=== PATIENT | female | born 1995 ===

== ENCOUNTER 2017-06-04 20:11 | Inpatient (IN) | payer BC ==
[2017-06-04] MEDS ORDERED: Sodium Chloride 0.9% 1,000 ML IV STA (20:50)
--- NOTE | 2017-06-04 20:54 | ED PDOC ---
HPI: Abdomen Time Seen by Provider: 06/04/17 20:42 Chief Complaint (Nursing): Abdominal Pain Chief Complaint (Provider): abdominal pain History Per: Patient History/Exam Limitations: no limitations Onset/Duration Of Symptoms: Days (4) Current Symptoms Are (Timing): Still Present Location Of Pain/Discomfort: RUQ Additional History Per: Patient Additional Complaint(s): 21 y/o female presents for eval of abdominal pain x 3 days. Patient states symptoms initially started both upper sides of her abdomen, with associated vomiting. Patient was seen by her PMD and prescribed anti-nausea medicine; states vomiting resolved since then but now notes "sharp" intermittent right upper abdominal pain. Denies fever, nausea/vomiting, chest pain, shortness of breath, palpitations, changes in bowel movements, dysuria, hematuria. Past Medical History Reviewed: Historical Data, Nursing Documentation, Vital Signs Vital Signs: Last Vital Signs Temp 98.3 F 06/05/17 02:36 Pulse 98 H 06/05/17 02:36 Resp 16 06/05/17 02:36 BP 122/75 06/05/17 02:36 Pulse Ox 99 06/05/17 03:12 - Medical History PMH: No Chronic Diseases - Surgical History Surgical History: Tonsillectomy - Family History Family History: States: Unknown Family Hx - Living Arrangements Living Arrangements: With Family - Allergies Allergies/Adverse Reactions: Allergies Allergy/AdvReac Type Severity Reaction Status Date / Time No Known Allergies Allergy Verified 06/04/17 20:21 Review of Systems ROS Statement: Except As Marked, All Systems Reviewed And Found Negative Physical Exam - Reviewed Vital Signs Reviewed: Yes - Physical Exam Appears: Positive for: Well, Non-toxic Head Exam: Positive for: ATRAUMATIC, NORMAL INSPECTION, NORMOCEPHALIC Eye Exam: Positive for: Normal appearance ENT: Positive for: Normal ENT Inspection Cardiovascular/Chest: Positive for: Regular Rate, Rhythm Respiratory: Positive for: Normal Breath Sounds Gastrointestinal/Abdominal: Positive for: Bowel Sounds, Soft, Tenderness (RUQ) Back: Positive for: Normal Inspection. Negative for: L CVA Tenderness, R CVA Tenderness Extremity: Positive for: Normal ROM Neurologic/Psych: Positive for: Alert, Oriented - Laboratory Results Result Diagrams: 06/04/17 21:18 06/04/17 21:18 Urine POC: Negative Urine dip results: Negative for: Leukocyte Esterase, Nitrate - ECG O2 Sat by Pulse Oximetry: 99 - Progress ED Course And Treament: labs, abdomen CT ED OBSERVATION Date of observation admission: 06/04/17 Time of observation admission: 23:00 - Observation admission statement Patient is being placed in observation because:: abdominal pain - Goals of Observation Goals of observation are:: obtain CT abd/pelvis - Progress Note Progress Note: 06/04/17 23:00 Patient resting comfortably 06/05/17 00:40 EXAM: CT Abdomen and Pelvis With Intravenous Contrast CLINICAL HISTORY: 21 years old, female; Pain; Abdominal pain; Generalized; Additional info: Right upper abdominal pain TECHNIQUE: Axial computed tomography images of the abdomen and pelvis with intravenous contrast. This CT exam was performed using one or more of the following dose reduction techniques : automated exposure control, adjustment of the mA and/or kV according to patient size, and/ or use of iterative reconstruction technique. Coronal and sagittal reformatted images were created and reviewed. CONTRAST: 95 mL of [id number] administered intravenously. COMPARISON: No relevant prior studies available. FINDINGS: Lower thorax: No acute findings. ABDOMEN: Liver: Mild fatty infiltration. Gallbladder and bile ducts: Apparent mild gallbladder wall thickening and/or fluid. No calcified gallstones. No ductal dilation. Pancreas: No ductal dilation. No mass. Spleen: No splenomegaly. Adrenals: No mass. Kidneys and ureters: No mass. No hydronephrosis. Stomach and bowel: No definite mural thickening. No obstruction. Appendix: Normal caliber. No inflammation. Appendicolith. PELVIS: Bladder: Unremarkable. Reproductive: 2.6 x 2.7 x 2.8 cm hypodense lesion within LEFT ovary. ABDOMEN and PELVIS: Intraperitoneal space: No significant fluid collection. No free air Bones/joints: No acute fracture. Soft tissues: Tiny umbilical hernia containing fat. Vasculature: Unremarkable. No aneurysm. Lymph nodes: No pathologically enlarged lymph nodes. IMPRESSION: 1. Apparent mild gallbladder wall thickening and/or fluid. Recommend ultrasound. 2. Probable LEFT ovarian cyst. Consider ultrasound. 3. Incidental/non-acute findings are described above. Case discussed with Dr. Ayala, Surgeon on-call; requesting ultrasound as could micro[employer] exchange administrator of patient depending on findings. Ultrasound called in 06/05/17 02:54 Multiple gallstones, mild to moderate gallblladder wall thickening and postive sonographic Agusto's. Finding suspecious for acute cholecystitis. CBD is normal 3.7 mm. RAD Impression : Abnormal Written by Jaz Gómez on 06/05/2017 02:34:27 3:[address] yAala, recommends admission under Hospitalist, IV fluids, IV zosyn, NPO Case discussed with Dr. Goodwin, Hospitalist on-call, for admission. 06/05/17 03:21 Case discussed with md do resident urgent care on-call Disposition - Clinical Impression Clinical Impression: Acute cholecystitis - Patient ED Disposition Is Patient to be Admitted: Yes - Disposition Disposition Time: 03:11 Condition: FAIR - Pt Status Changed To: Hospital Disposition Of: Inpatient - Admit Certification Admit to Inpatient:: After my assessment, the patient will require hospitalization for at least two midnights. This is because of the severity of symptoms shown, intensity of services needed, and/or the medical risk in this patient being treated as an outpatient.
[2017-06-04 21:29] LABS: BASO # 0.1 K/uL (0.0-0.2); BASO % 0.7 % (0.0-2.0); EOS # 0.3 K/uL (0.0-0.7); EOS % 2.8 % (0.0-4.0); HEMOGLOBIN 13.9 g/dL (12.0-16.0); LYMPH # 1.9 K/uL (1.0-4.3); LYMPH % 16.2 % (20.0-40.0); MEAN CELL VOLUME 84.5 fl (81.0-99.0); MEAN CORPUSCULAR HEMOGLOBIN 27.4 pg (27.0-31.0); MEAN CORPUSCULAR HGB CONC 32.4 g/dL (33.0-37.0); MEAN PLATELET VOLUME 9.2 fl (7.2-11.7); MONO # 0.8 K/uL (0.0-0.8); MONO % 7.3 % (0.0-10.0); NEUT # 8.5 K/uL (1.8-7.0); NRBC % 0.1 % (0.0-0.0); RBC 5.08 Mil/uL (3.80-5.20); WHITE BLOOD COUNT 11.6 K/uL (4.8-10.8)
[2017-06-04 21:37] LABS: ALB/GLOB RATIO 1.5 (1.0-2.1); ALBUMIN 4.6 g/dL (3.5-5.0); ALT/SGPT 66 U/L (9-52); AST/SGOT 33 U/L (14-36); BLOOD UREA NITROGEN 9 mg/dl (7-17); CALCIUM 9.4 mg/dL (8.4-10.2); GFR AFRICAN-AMERICAN > 60; GFR NON-AFRICAN AMERICAN > 60; LIPASE 82 U/L (23-300)
[2017-06-04 21:51] LABS: PARTIAL THROMBOPLASTIN TIME 28.7 Seconds (25.6-37.1); PROTHROMBIN TIME 11.8 Seconds (9.8-13.1)
[2017-06-04] MEDS ORDERED: Sodium Chloride 0.9% 50 ML IV ONE (23:10)
[2017-06-04] MEDS ORDERED: Iohexol 300 100 ML IJ ONE (23:10)
--- NOTE | 2017-06-05 00:23 | CT ---
EXAM: CT Abdomen and Pelvis With Intravenous Contrast CLINICAL HISTORY: 21 years old, female; Pain; Abdominal pain; Generalized; Additional info: Right upper abdominal pain TECHNIQUE: Axial computed tomography images of the abdomen and pelvis with intravenous contrast. This CT exam was performed using one or more of the following dose reduction techniques: automated exposure control, adjustment of the mA and/or kV according to patient size, and/or use of iterative reconstruction technique. Coronal and sagittal reformatted images were created and reviewed. CONTRAST: 95 mL of [id number] administered intravenously. COMPARISON: No relevant prior studies available. FINDINGS: Lower thorax: No acute findings. ABDOMEN: Liver: Mild fatty infiltration. Gallbladder and bile ducts: Apparent mild gallbladder wall thickening and/or fluid. No calcified gallstones. No ductal dilation. Pancreas: No ductal dilation. No mass. Spleen: No splenomegaly. Adrenals: No mass. Kidneys and ureters: No mass. No hydronephrosis. Stomach and bowel: No definite mural thickening. No obstruction. Appendix: Normal caliber. No inflammation. Appendicolith. PELVIS: Bladder: Unremarkable. Reproductive: 2.6 x 2.7 x 2.8 cm hypodense lesion within LEFT ovary. ABDOMEN and PELVIS: Intraperitoneal space: No significant fluid collection. No free air. Bones/joints: No acute fracture. Soft tissues: Tiny umbilical hernia containing fat. Vasculature: Unremarkable. No aneurysm. Lymph nodes: No pathologically enlarged lymph nodes. IMPRESSION: 1. Apparent mild gallbladder wall thickening and/or fluid. Recommend ultrasound. 2. Probable LEFT ovarian cyst. Consider ultrasound. 3. Incidental/non-acute findings are described above.
[2017-06-05] MEDS ORDERED: Piperacill/Tazo 3.375gm in Dex 3.375 GM/50 ML BAG IVPB ONE (03:04)
[2017-06-05] MEDS ORDERED: Piperacillin/Tazobact 3.375 gm Inj IVPB ONE (03:10)
[2017-06-05] MEDS ORDERED: Sodium Chloride 0.9% 1,000 ML IV SCH (03:15)
--- NOTE | 2017-06-05 03:19 | CP.PCM.HP ---
History of Present Illness - History of Present Illness History of Present Illness: CC: RUQ pain, n/v HPI: This is a 21 y/o female with asthma who comes in with 2-3 days of RUQ abd pain. She states it started Wednesday, and she went to her PCP who believed it was viral gastroenteritis. The pain continued intermittently, and got worse in frequency and intensity, and today was accompanied by n/v/d. Denies f/c. States she has intermittently had RUQ pain for the last several months, usually worsened by heavy/fatty foods like [employer]. Generally it has self-resolved. Denies any SOB or wheezing currently. ROS: 14 systems reviewed, negative other than HPI MHx: Asthma SHx: Tonsils Allergies: NKDA; patient had some n/v after anesthesia for her tonsils Medications: As per med rec Family Hx: no significant illnesses Social Hx: Lives with family, no tobacco or EtOH Present on Admission - Present on Admission Any Indicators Present on Admission: No Past Patient History - Past Social History Smoking Status: Never Smoked - PSYCHIATRIC Hx Substance Use: No - SURGICAL HISTORY Hx Tonsillectomy: Yes Meds Allergies/Adverse Reactions: Allergies Allergy/AdvReac Type Severity Reaction Status Date / Time No Known Allergies Allergy Verified 06/04/17 20:21 Physical Exam - Constitutional Appears: No Acute Distress - Head Exam Head Exam: ATRAUMATIC, NORMOCEPHALIC - Eye Exam Eye Exam: EOMI, PERRL - ENT Exam ENT Exam: Mucous Membranes Moist - Neck Exam Neck exam: Positive for: Full Rom - Respiratory Exam Respiratory Exam: Clear to Auscultation Bilateral, NORMAL BREATHING PATTERN - Cardiovascular Exam Cardiovascular Exam: REGULAR RHYTHM, +S1, +S2 - GI/Abdominal Exam GI & Abdominal Exam: Normal Bowel Sounds, Soft - Extremities Exam Extremities exam: Positive for: full ROM, normal inspection - Neurological Exam Neurological exam: Alert, CN II-XII Intact, Oriented x3 - Psychiatric Exam Psychiatric exam: Normal Affect, Normal Mood - Skin Skin Exam: Dry, Warm Results - Vital Signs Recent Vital Signs: Last Vital Signs Temp 98.3 F 06/05/17 02:36 Pulse 98 H 06/05/17 02:36 Resp 16 06/05/17 02:36 BP 122/75 06/05/17 02:36 Pulse Ox 99 07/22/17 03:12 - Labs Result Diagrams: 06/04/17 21:18 06/04/17 21:18 Assessment & Plan (1) Acute cholecystitis Assessment and Plan: 21 y/o female with acute cholecystitis. -NPO, IVF -Continue Zosyn IV -Pain control per scale -Zofran IV for nausea -Surgical consult (Jamie notified) -- likely OR in AM -SCD for DVT PPx Status: Acute (2) DVT prophylaxis Status: Acute
[2017-06-05] MEDS: Lactated Ringer's 1,000 ML IV SCH ×4 (03:30→19:57)
--- NOTE | 2017-06-05 03:38 | US ---
HISTORY: right upper abominal pain COMPARISON: None. TECHNIQUE: Sonographic evaluation of the right upper quadrant of the abdomen. FINDINGS: LIVER: Measures 17.1 cm in length. Mild increased echogenicity of the liver parenchyma. No mass. No intrahepatic bile duct dilatation. GALLBLADDER: Multiple gallstones are seen. There is [id number] gallbladder wall thickening measures up to 4.7 millimeter. The radiologic technologist chief reported positive sonographic Gonzalez's sign. COMMON BILE DUCT: Measures 3.7 mm. No stones. No dilatation. PANCREAS: Unremarkable as visualized. No mass. No ductal dilatation. RIGHT KIDNEY: Measures 10.8 x 6.5 x 5.1 cm in length. Normal echogenicity. No calculus, mass, or hydronephrosis. AORTA: No aneurysmal dilatation. IVC: Unremarkable. OTHER FINDINGS: None . IMPRESSION: Multiple gallstones and mild to moderate gallbladder wall thickening. Findings suspicious for acute cholecystitis. If clinically warranted further assessment by hepatobiliary scan may be obtained. Normal caliber of the CBD. Mild hepatomegaly and mild hepatic steatosis.
[2017-06-05 04:35] LABS: INR 1.1 (0.9-1.2); PARTIAL THROMBOPLASTIN TIME 28.2 Seconds (25.6-37.1); PROTHROMBIN TIME 12.8 Seconds (9.8-13.1)
[2017-06-05 04:40] LABS: HEMOGLOBIN 14.2 g/dL (12.0-16.0); MEAN CELL VOLUME 83.9 fl (81.0-99.0); MEAN CORPUSCULAR HEMOGLOBIN 27.6 pg (27.0-31.0); MEAN CORPUSCULAR HGB CONC 32.9 g/dL (33.0-37.0); RBC 5.13 Mil/uL (3.80-5.20); RED CELL DISTRIBUTION WIDTH 13.8 % (11.5-14.5); WHITE BLOOD COUNT 11.1 K/uL (4.8-10.8)
[2017-06-05 04:48] LABS: BLOOD UREA NITROGEN 7 mg/dl (7-17); CALCIUM 9.3 mg/dL (8.4-10.2); GFR AFRICAN-AMERICAN > 60; GFR NON-AFRICAN AMERICAN > 60
[2017-06-05] MEDS: Piperacill/Tazo 3.375gm in Dex 3.375 GM/50 ML BAG IVPB SCH ×4 (05:04→19:54)
--- NOTE | 2017-06-05 07:59 | CP.PCM.CON ---
<Sachi Llanos - Last Filed: 06/05/17 07:55> History of Present Illness - History of Present Illness History of Present Illness: Surgery consult for Dr. Ayala 21 F w PMH of biliary colic and obesity presents with RUQ abd pain and N/V started wednesday. Pt reports that pain is associated with fatty food. Had these symptoms in the past. This is hector 4th attack and has gotten more frequent and severe. Pt has FHX of cholecystitis and both mother and grandmather had cholecystectomy. N/V after eating. Non bloody and non bilious. Denies D/F/C/CP/ SOB/sick contact/recent travel . US of abs shows gallstones. WBC was 12, tbili is 1.5. SS: :Lives with family. PMH: Obesity , biliary colic PSH: Tonsilectomy Review of Systems - Review of Systems Review of Systems: See HPI Past Patient History - Past Medical History & Family History Past Medical History?: Yes - Past Social History Smoking Status: Never Smoked - CARDIAC Hx Cardiac Disorders: No - PULMONARY Hx Asthma: Yes (last attack 3yrs ago after running in school) - NEUROLOGICAL Hx Neurological Disorder: No - HEENT Hx HEENT Problems: No - RENAL Hx Chronic Kidney Disease: No - ENDOCRINE/METABOLIC Hx Endocrine Disorders: No - HEMATOLOGICAL/ONCOLOGICAL Hx Blood Disorders: No Hx AIDS: No Hx Human Immunodeficiency Virus (HIV): No - INTEGUMENTARY Hx Dermatological Problems: No - MUSCULOSKELETAL/RHEUMATOLOGICAL Hx Musculoskeletal Disorders: No Hx Falls: No - GASTROINTESTINAL Hx Gastrointestinal Disorders: No - GENITOURINARY/GYNECOLOGICAL Hx Genitourinary Disorders: No - PSYCHIATRIC Hx Psychophysiologic Disorder: No Hx Substance Use: No - SURGICAL HISTORY Hx Tonsillectomy: Yes (11 yrs ago) - ANESTHESIA Hx Anesthesia: Yes Hx Anesthesia Reactions: No Hx Malignant Hyperthermia: No Has any member of the family had a problem w/ anesthesia?: No Meds Allergies/Adverse Reactions: Allergies Allergy/AdvReac Type Severity Reaction Status Date / Time No Known Allergies Allergy Verified 06/04/17 20:21 - Medications Medications: Current Medications Lactated Ringer's (Lactated Ringer's) 1,000 mls @ 125 mls/hr IV .Q8H [facility] Last Admin: 06/05/17 03:30 Dose: 125 mls/hr Piperacillin Sod/Tazobactam Sod (Zosyn 3.375 Gm Iv Premix) 3.375 gm in 50 mls @ 50 mls/hr IVPB Q6 [facility] Last Admin: 06/05/17 05:04 Dose: Not Given Ketorolac Tromethamine (Toradol) 15 mg IVP Q6 PRN PRN Reason: Pain, Mild (1-3) Morphine Sulfate (Morphine) 1 mg IVP Q4H PRN PRN Reason: Pain, moderate (4-7) Morphine Sulfate (Morphine) 2 mg IVP Q4 PRN PRN Reason: Pain, severe (8-10) Ondansetron HCl (Zofran Inj) 4 mg IVP Q6 PRN PRN Reason: Nausea/Vomiting Physical Exam - Constitutional Appears: Non-toxic - Head Exam Head Exam: ATRAUMATIC, NORMAL INSPECTION, NORMOCEPHALIC - Eye Exam Eye Exam: EOMI, Normal appearance, PERRL Pupil Exam: NORMAL ACCOMODATION, PERRL - ENT Exam ENT Exam: Mucous Membranes Moist, Normal Exam - Neck Exam Neck exam: Positive for: Normal Inspection - Respiratory Exam Respiratory Exam: Clear to Auscultation Bilateral, NORMAL BREATHING PATTERN - Cardiovascular Exam Cardiovascular Exam: REGULAR RHYTHM - GI/Abdominal Exam GI & Abdominal Exam: Normal Bowel Sounds, Soft, Tenderness. absent: Distended, Firm, Guarding, Hernia Additional comments: RUQ TTP. - Extremities Exam Extremities exam: Positive for: normal inspection - Back Exam Back exam: NORMAL INSPECTION - Neurological Exam Neurological exam: Alert, CN II-XII Intact, Normal Gait, Oriented x3, Reflexes Normal - Psychiatric Exam Psychiatric exam: Normal Affect, Normal Mood - Skin Skin Exam: Dry, Intact, Normal Color, Warm Results - Vital Signs Recent Vital Signs: Last Vital Signs Temp 98.7 F 06/05/17 04:38 Pulse 94 H 06/05/17 05:47 Resp 20 06/05/17 05:47 BP 126/82 06/05/17 04:38 Pulse Ox 98 06/05/17 04:38 - Labs Result Diagrams: 06/05/17 04:20 06/05/17 04:20 Labs: Laboratory Results - last 24 hr 06/05/17 06/05/17 04:20 04:20 WBC 11.1 H RBC 5.13 Hgb 14.2 Hct 43.1 MCV 83.9 MCH 27.6 MCHC 32.9 L RDW 13.8 Plt Count 342 Sodium 139 Potassium 3.6 Chloride 105 Carbon Dioxide 23 Anion Gap 15 BUN 7 Creatinine 0.8 Est GFR ( Amer) > 60 Est GFR (Non-Af Amer) > 60 Random Glucose 97 Calcium 9.3 Assessment & Plan - Assessment and Plan (Free Text) Assessment: Cholecystitis v biliary colic US: gallstones. WBC 12 tbili 1.5 -Possible Lap pito this admissions. OK to follow up for outpatient elective surgery. -CLD . NPO if vomits -We will follow closely -IVF -Zofran -ABX DW Dr. Ayala <James Ayala - Last Filed: 06/05/17 14:54> History of Present Illness - History of Present Illness History of Present Illness: Patient was seen and examined at the bedside. Agree with resident's note above. Meds - Medications Medications: Current Medications Lactated Ringer's (Lactated Ringer's) 1,000 mls @ 125 mls/hr IV .Q8H [facility] Last Admin: 06/05/17 13:14 Dose: 125 mls/hr Piperacillin Sod/Tazobactam Sod (Zosyn 3.375 Gm Iv Premix) 3.375 gm in 50 mls @ 50 mls/hr IVPB Q6H [facility] Last Admin: 06/05/17 13:14 Dose: 50 mls/hr Ketorolac Tromethamine (Toradol) 15 mg IVP Q6 PRN PRN Reason: Pain, Mild (1-3) Morphine Sulfate (Morphine) 1 mg IVP Q4H PRN PRN Reason: Pain, moderate (4-7) Morphine Sulfate (Morphine) 2 mg IVP Q4 PRN PRN Reason: Pain, severe (8-10) Ondansetron HCl (Zofran Inj) 4 mg IVP Q6 PRN PRN Reason: Nausea/Vomiting Results - Vital Signs Recent Vital Signs: Last Vital Signs Temp 98.9 F 06/05/17 08:58 Pulse 70 06/05/17 08:58 Resp 18 06/05/17 08:58 BP 108/70 06/05/17 08:58 Pulse Ox 99 06/05/17 08:58 - Labs Result Diagrams: 06/05/17 04:20 06/05/17 04:20 Labs: Laboratory Results - last 24 hr 06/05/17 06/05/17 04:20 04:20 WBC 11.1 H RBC 5.13 Hgb 14.2 Hct 43.1 MCV 83.9 MCH 27.6 MCHC 32.9 L RDW 13.8 Plt Count 342 Sodium 139 Potassium 3.6 Chloride 105 Carbon Dioxide 23 Anion Gap 15 BUN 7 Creatinine 0.8 Est GFR ( Amer) > 60 Est GFR (Non-Af Amer) > 60 Random Glucose 97 Calcium 9.3 - Imaging and Cardiology CT scan - abdomen Status: Image reviewed by me, Report reviewed by me Assessment & Plan - Assessment and Plan (Free Text) Plan: - Clear liquid diet - Pain control - Zofran prn - IV fluids - Continue antibiotics - Plan for cholecystectomy on 06/07/17 - Repeat labs in am - Will follow
--- NOTE | 2017-06-05 20:26 | CARD ---
APPROVED REPORT EKG Measurement Heart [id number] <Conclusion> Sinus tachycardia Minimal voltage criteria for LVH, may be normal variant Borderline ECG
[2017-06-06] MEDS: Piperacill/Tazo 3.375gm in Dex 3.375 GM/50 ML BAG IVPB SCH ×4 (01:06→18:02)
[2017-06-06 07:56] LABS: HEMOGLOBIN 12.5 g/dL (12.0-16.0); MEAN CELL VOLUME 84.5 fl (81.0-99.0); MEAN CORPUSCULAR HEMOGLOBIN 27.8 pg (27.0-31.0); MEAN CORPUSCULAR HGB CONC 32.9 g/dL (33.0-37.0); RBC 4.5 Mil/uL (3.80-5.20); RED CELL DISTRIBUTION WIDTH 13.7 % (11.5-14.5); WHITE BLOOD COUNT 7.8 K/uL (4.8-10.8)
[2017-06-06 08:18] LABS: ALBUMIN 3.6 g/dL (3.5-5.0)
[2017-06-06 08:21] LABS: ALB/GLOB RATIO 1.1 (1.0-2.1); AST/SGOT 39 U/L (14-36); BLOOD UREA NITROGEN 7 mg/dl (7-17); GFR AFRICAN-AMERICAN > 60; GFR NON-AFRICAN AMERICAN > 60
[2017-06-06 08:22] LABS: ALT/SGPT 60 U/L (9-52); CALCIUM 8.6 mg/dL (8.4-10.2)
--- NOTE | 2017-06-06 09:01 | RAD ---
PROCEDURE: CHEST RADIOGRAPH, 1 VIEW HISTORY: pre-op eval, obesity/asthma COMPARISON: None available. FINDINGS: LUNGS: Clear. PLEURA: No pneumothorax or pleural fluid seen. CARDIOVASCULAR: Normal. OSSEOUS STRUCTURES: No significant abnormalities. VISUALIZED UPPER ABDOMEN: Normal. OTHER FINDINGS: None. IMPRESSION: No active disease.
--- NOTE | 2017-06-06 10:26 | CP.PCM.PN ---
<Sachi Llanos - Last Filed: 06/06/17 13:52> Subjective - Date & Time of Evaluation Date of Evaluation: 06/06/17 Time of Evaluation: 13:53 - Subjective Subjective: Surgery for Dr. Ayala Pt s&eMona WANG. Denies F/C/N/V/D?CP/SOB. Pain controlled. Tolerating CLD. Objective - Vital Signs/Intake and Output Vital Signs (last 24 hours): Temp Pulse Resp BP Pulse Ox 98.4 F 72 20 102/64 99 06/06/17 08:13 06/06/17 08:13 06/06/17 08:13 06/06/17 08:13 06/06/17 08:13 - Medications Medications: Current Medications Lactated Ringer's (Lactated Ringer's) 1,000 mls @ 125 mls/hr IV .Q8H [facility] Last Admin: 06/05/17 19:57 Dose: Not Given Piperacillin Sod/Tazobactam Sod (Zosyn 3.375 Gm Iv Premix) 3.375 gm in 50 mls @ 50 mls/hr IVPB Q6H [facility] Last Admin: 06/06/17 06:50 Dose: 50 mls/hr Ketorolac Tromethamine (Toradol) 15 mg IVP Q6 PRN PRN Reason: Pain, Mild (1-3) Morphine Sulfate (Morphine) 1 mg IVP Q4H PRN PRN Reason: Pain, moderate (4-7) Morphine Sulfate (Morphine) 2 mg IVP Q4 PRN PRN Reason: Pain, severe (8-10) Ondansetron HCl (Zofran Inj) 4 mg IVP Q6 PRN PRN Reason: Nausea/Vomiting - Labs Labs: 06/06/17 05:30 06/06/17 05:30 PT 12.8 Seconds (9.8-13.1) 06/05/17 03:06 INR 1.1 (0.9-1.2) 06/05/17 03:06 APTT 28.2 Seconds (25.6-37.1) 06/05/17 03:06 - Constitutional Appears: No Acute Distress - Head Exam Head Exam: ATRAUMATIC, NORMAL INSPECTION - Eye Exam Eye Exam: EOMI, Normal appearance, PERRL Pupil Exam: NORMAL ACCOMODATION, PERRL - ENT Exam ENT Exam: Mucous Membranes Moist, Normal Exam - Neck Exam Neck Exam: Full ROM, Normal Inspection. absent: Lymphadenopathy - Respiratory Exam Respiratory Exam: Clear to Ausculation Bilateral, NORMAL BREATHING PATTERN - Cardiovascular Exam Cardiovascular Exam: REGULAR RHYTHM, +S1, +S2. absent: Murmur - GI/Abdominal Exam GI & Abdominal Exam: Soft, Tenderness. absent: Distended, Firm, Guarding, Rigid Additional comments: RUQ TTP. - Exam Exam: NORMAL INSPECTION - Extremities Exam Extremities Exam: Full ROM, Normal Capillary Refill, Normal Inspection. absent : Joint Swelling, Pedal Edema - Back Exam Back Exam: NORMAL INSPECTION - Neurological Exam Neurological Exam: Alert, Awake, CN II-XII Intact, Normal Gait, Oriented x3 - Psychiatric Exam Psychiatric exam: Normal Affect, Normal Mood - Skin Skin Exam: Dry, Intact, Normal Color, Warm Assessment and Plan - Assessment and Plan (Free Text) Assessment: Cholecystitis v biliary colic US: gallstones. T-bili elevated today 2.5 -MRCP -Plan for surgery tomorrow if MRCP neg for choledoco. -CLD . NPO after midnight. -We will follow closely -IVF -Zofran -ABX DW Dr. Ayala <James Ayala - Last Filed: 06/06/17 14:02> Subjective - Subjective Subjective: Patient was seen and examined at the bedside. Agree with resident's note above Objective - Vital Signs/Intake and Output Vital Signs (last 24 hours): Temp Pulse Resp BP Pulse Ox 98.4 F 72 20 102/64 99 06/06/17 08:13 06/06/17 08:13 06/06/17 08:13 06/06/17 08:13 06/06/17 08:13 - Medications Medications: Current Medications Lactated Ringer's (Lactated Ringer's) 1,000 mls @ 125 mls/hr IV .Q8H [facility] Last Admin: 06/06/17 12:22 Dose: Not Given Piperacillin Sod/Tazobactam Sod (Zosyn 3.375 Gm Iv Premix) 3.375 gm in 50 mls @ 50 mls/hr IVPB Q6H [facility] Last Admin: 06/06/17 12:58 Dose: 50 mls/hr Morphine Sulfate (Morphine) 1 mg IVP Q4H PRN PRN Reason: Pain, moderate (4-7) Morphine Sulfate (Morphine) 2 mg IVP Q4 PRN PRN Reason: Pain, severe (8-10) Ondansetron HCl (Zofran Inj) 4 mg IVP Q6 PRN PRN Reason: Nausea/Vomiting - Labs Labs: 06/06/17 05:30 06/06/17 05:30 PT 12.8 Seconds (9.8-13.1) 06/05/17 03:06 INR 1.1 (0.9-1.2) 06/05/17 03:06 APTT 28.2 Seconds (25.6-37.1) 06/05/17 03:06
--- NOTE | 2017-06-06 10:39 | CP.PCM.PN ---
Subjective - Date & Time of Evaluation Date of Evaluation: 06/06/17 Time of Evaluation: 10:00 - Subjective Subjective: Patient seen and examined bedside. feeling better. Abdominal pain resolved . Hemodynamically stable, afebrile Tolerating liquid diet No acute issues overnight Objective - Vital Signs/Intake and Output Vital Signs (last 24 hours): Temp Pulse Resp BP Pulse Ox 98.4 F 72 20 102/64 99 06/06/17 08:13 06/06/17 08:13 06/06/17 08:13 06/06/17 08:13 06/06/17 08:13 - Medications Medications: Current Medications Lactated Ringer's (Lactated Ringer's) 1,000 mls @ 125 mls/hr IV .Q8H [facility] Last Admin: 06/05/17 19:57 Dose: Not Given Piperacillin Sod/Tazobactam Sod (Zosyn 3.375 Gm Iv Premix) 3.375 gm in 50 mls @ 50 mls/hr IVPB Q6H [facility] Last Admin: 06/06/17 06:50 Dose: 50 mls/hr Ketorolac Tromethamine (Toradol) 15 mg IVP Q6 PRN PRN Reason: Pain, Mild (1-3) Morphine Sulfate (Morphine) 1 mg IVP Q4H PRN PRN Reason: Pain, moderate (4-7) Morphine Sulfate (Morphine) 2 mg IVP Q4 PRN PRN Reason: Pain, severe (8-10) Ondansetron HCl (Zofran Inj) 4 mg IVP Q6 PRN PRN Reason: Nausea/Vomiting - Labs Labs: 06/06/17 05:30 06/06/17 05:30 PT 12.8 Seconds (9.8-13.1) 06/05/17 03:06 INR 1.1 (0.9-1.2) 06/05/17 03:06 APTT 28.2 Seconds (25.6-37.1) 06/05/17 03:06 - Constitutional Appears: Non-toxic, No Acute Distress, Other (obese) - Head Exam Head Exam: ATRAUMATIC, NORMAL INSPECTION, NORMOCEPHALIC - Eye Exam Eye Exam: EOMI, Normal appearance, PERRL Pupil Exam: NORMAL ACCOMODATION - ENT Exam ENT Exam: Mucous Membranes Moist, Normal Exam - Neck Exam Neck Exam: Full ROM, Normal Inspection - Respiratory Exam Respiratory Exam: Clear to Ausculation Bilateral, NORMAL BREATHING PATTERN. absent: Rales, Rhonchi, Wheezes - Cardiovascular Exam Cardiovascular Exam: REGULAR RHYTHM, RRR, +S1, +S2. absent: JVD - GI/Abdominal Exam GI & Abdominal Exam: Soft, Normal Bowel Sounds. absent: Distended, Guarding, Tenderness, Rebound - Rectal Exam Rectal Exam: Deferred - Extremities Exam Extremities Exam: Full ROM, Normal Capillary Refill, Normal Inspection. absent : Calf Tenderness, Pedal Edema - Back Exam Back Exam: NORMAL INSPECTION - Neurological Exam Neurological Exam: Alert, Awake, CN II-XII Intact, Oriented x3 - Psychiatric Exam Psychiatric exam: Normal Affect, Normal Mood - Skin Skin Exam: Dry, Intact, Normal Color, Warm Assessment and Plan - Assessment and Plan (Free Text) Assessment: 21 y/o female with asthma who comes in with 2-3 days of RUQ abd pain. She states it started Wednesday, and she went to her PCP who believed it was viral gastroenteritis. The pain continued intermittently, and got worse in frequency and intensity, and today was accompanied by n/v/d. Denies f/c. States she has intermittently had RUQ pain for the last several months, usually worsened by heavy/fatty foods like [employer]. Generally it has self-resolved. Denies any SOB or wheezing currently.CT abdomen and gallbladder US showed Cholelithiasis and Cholecystitis WBC 11k 1. Acute cholecystitiswith cholelithiasis Surgery consulted . For lap cholecystectomy in AM Advance diet to full liquid . Will keep NPO past midnight Continue Zosyn IV, pain management WBC trended down jose 7.8 2. Obesity will need appointment specialist eval 3.DVt prophylaxis SCd ambulatory in unit
[2017-06-06] MEDS: Lactated Ringer's 1,000 ML IV SCH (12:22)
[2017-06-06] MEDS ORDERED: Morphine 4 MG/ML VIAL IVP PRN ×2 (14:45)
[2017-06-07] MEDS: Piperacill/Tazo 3.375gm in Dex 3.375 GM/50 ML BAG IVPB SCH ×4 (00:09→17:37)
[2017-06-07 06:53] LABS: HEMOGLOBIN 12.4 g/dL (12.0-16.0); MEAN CELL VOLUME 84.6 fl (81.0-99.0); MEAN CORPUSCULAR HEMOGLOBIN 27.5 pg (27.0-31.0); MEAN CORPUSCULAR HGB CONC 32.4 g/dL (33.0-37.0); RBC 4.5 Mil/uL (3.80-5.20); RED CELL DISTRIBUTION WIDTH 13.7 % (11.5-14.5)
[2017-06-07 07:14] LABS: ALB/GLOB RATIO 1.3 (1.0-2.1); ALBUMIN 3.7 g/dL (3.5-5.0); ALT/SGPT 75 U/L (9-52); AST/SGOT 50 U/L (14-36); BLOOD UREA NITROGEN 6 mg/dl (7-17); CALCIUM 8.9 mg/dL (8.4-10.2); GFR AFRICAN-AMERICAN > 60; GFR NON-AFRICAN AMERICAN > 60
[2017-06-07] MEDS ORDERED: Gadodiamide 287 MG/ML VIAL (15ML) IV ONE (09:35)
[2017-06-07] MEDS ORDERED: Sodium Chloride 0.9% 50 ML IV ONE (09:36)
[2017-06-07] MEDS: Lactated Ringer's 1,000 ML IV SCH ×2 (12:02→20:26)
--- NOTE | 2017-06-07 12:26 | CP.PCM.PN ---
Subjective - Date & Time of Evaluation Date of Evaluation: 06/07/16 Time of Evaluation: 12:30 - Subjective Subjective: Patient seen and evaluated bedside. Feeling well. Denies any abdominal pain. Hemnodynamically stable, afebrile No acute issues overnight NPO MRCP shwed no CBD duct stone Objective - Vital Signs/Intake and Output Vital Signs (last 24 hours): Temp Pulse Resp BP Pulse Ox 98.9 F 62 18 113/73 99 06/07/17 08:35 06/07/17 08:35 06/07/17 08:35 06/07/17 08:35 06/07/17 08:35 - Medications Medications: Current Medications Lactated Ringer's (Lactated Ringer's) 1,000 mls @ 125 mls/hr IV .Q8H [facility] Last Admin: 06/07/17 12:02 Dose: Not Given Piperacillin Sod/Tazobactam Sod (Zosyn 3.375 Gm Iv Premix) 3.375 gm in 50 mls @ 50 mls/hr IVPB 0000,0600,1200,1800 [facility] Last Admin: 06/07/17 06:09 Dose: 50 mls/hr Morphine Sulfate (Morphine) 1 mg IVP Q4H PRN PRN Reason: Pain, moderate (4-7) Morphine Sulfate (Morphine) 2 mg IVP Q4 PRN PRN Reason: Pain, severe (8-10) Ondansetron HCl (Zofran Inj) 4 mg IVP Q6 PRN PRN Reason: Nausea/Vomiting - Labs Labs: 06/07/17 06:15 06/07/17 06:15 PT 12.8 Seconds (9.8-13.1) 06/05/17 03:06 INR 1.1 (0.9-1.2) 06/05/17 03:06 APTT 28.2 Seconds (25.6-37.1) 06/05/17 03:06 - Constitutional Appears: Non-toxic, No Acute Distress, Other (obese) - Head Exam Head Exam: ATRAUMATIC, NORMAL INSPECTION, NORMOCEPHALIC - Eye Exam Eye Exam: EOMI, Normal appearance, PERRL Pupil Exam: NORMAL ACCOMODATION - ENT Exam ENT Exam: Mucous Membranes Moist, Normal Exam - Neck Exam Neck Exam: Full ROM, Normal Inspection - Respiratory Exam Respiratory Exam: Clear to Ausculation Bilateral, NORMAL BREATHING PATTERN. absent: Rales, Rhonchi, Wheezes - Cardiovascular Exam Cardiovascular Exam: REGULAR RHYTHM, RRR, +S1, +S2. absent: JVD - GI/Abdominal Exam GI & Abdominal Exam: Soft, Normal Bowel Sounds. absent: Distended, Guarding, Tenderness, Rebound - Rectal Exam Rectal Exam: Deferred - Extremities Exam Extremities Exam: Full ROM, Normal Capillary Refill, Normal Inspection. absent : Pedal Edema - Back Exam Back Exam: NORMAL INSPECTION - Neurological Exam Neurological Exam: Alert, Awake, CN II-XII Intact, Oriented x3 - Psychiatric Exam Psychiatric exam: Normal Affect, Normal Mood - Skin Skin Exam: Dry, Intact, Normal Color, Warm Assessment and Plan - Assessment and Plan (Free Text) Assessment: 21 y/o female with asthma who comes in with 2-3 days of RUQ abd pain. She states it started Wednesday, and she went to her PCP who believed it was viral gastroenteritis. The pain continued intermittently, and got worse in frequency and intensity, and today was accompanied by n/v/d. Denies f/c. States she has intermittently had RUQ pain for the last several months, usually worsened by heavy/fatty foods like [employer]. Generally it has self-resolved. Denies any SOB or wheezing currently.CT abdomen and gallbladder US showed Cholelithiasis and Cholecystitis WBC 11k 1. Acute cholecystitis with cholelithiasis Surgery consulted . Ct showed cholelithiasis and cholecystitis Bilrubin trending up , concerning for CBD stone. MRCP showed no CBD stone NPO Continue Zosyn IV, pain management For lap cholecystectomy today 2. Obesity will need clinical trial data manager eval 3.DVt prophylaxis SCd ambulatory in unit
--- NOTE | 2017-06-07 12:58 | MRI ---
PROCEDURE: MRI Abdomen with and without contrast HISTORY: COMPARISON: None available. TECHNIQUE: Multisequence, multiplanar MR images of the abdomen with and without gadolinium contrast enhancement. FINDINGS: LIVER: Unremarkable. GALLBLADDER: Multiple gallstones noted without evidence of choledocholithiasis. No biliary dilatation. SPLEEN: Unremarkable. PANCREAS: Unremarkable. ADRENALS: Unremarkable. KIDNEYS: Unremarkable. AORTA: No aneurysm. ASCITES: None. PERITONEUM: Unremarkable. LYMPH NODES: Unremarkable. OTHER FINDINGS: Limited by motion artifact. IMPRESSION: Multiple gallstones noted without evidence of choledocholithiasis. No biliary dilatation.
[2017-06-07] MEDS ORDERED: Lidocaine 1% Inj (20ml) ONE (18:09)
[2017-06-07] MEDS ORDERED: Bupivacaine 0.5% Inj(30mL) ONE (18:09)
[2017-06-07] MEDS ORDERED: Lactated Ringer's 1,000 ML IV ONE ×2 (19:28→20:49)
[2017-06-07] MEDS ORDERED: Rocuronium 10 mg/ml (5 ml) ONE (19:34)
[2017-06-07] MEDS ORDERED: Propofol 10 mg/ml Inj (20 ML) ONE (19:34)
[2017-06-07] MEDS ORDERED: Midazolam 2 MG/2 ML VIAL ONE (19:34)
[2017-06-07] MEDS ORDERED: Succinylcholine 200 mg/10 ml Inj IV ONE (19:34)
[2017-06-07] MEDS ORDERED: Sevoflurane - Inhalation Anesthetic Liq (250 ml) ONE (19:40)
[2017-06-07] MEDS ORDERED: Neostigmine Methylsulfate 3mg/3ml Syringe IV ONE (20:01)
[2017-06-07] MEDS ORDERED: Lactated Ringer's 1,000 ML IV SCH (20:43)
--- NOTE | 2017-06-07 21:04 | PCM.SURG1 ---
Surgeon's Initial Post Op Note - Surgeon's Notes Surgeon: Jamie Proof Coin Collector: Arthur Her PGY3, Tee PGY1 Type of Anesthesia: General Endo, Local Pre-Operative Diagnosis: cholecystitis Operative Findings: acutely inflamed gallbaldder Post-Operative Diagnosis: same Operation Performed: laparoscopic cholecystectomy Specimen/Specimens Removed: gallbladder Estimated Blood Loss: EBL {In ML}: 25 Blood Products Given: N/A Drains Used: No Drains Post-Op Condition: Good Date of Surgery/Procedure: 06/07/17 Time of Surgery/Procedure: 21:04
[2017-06-07] MEDS: HYDROmorphone 0.5 mg/0.5 ml ISec IVP PRN ×2 (21:20→21:30)
[2017-06-08] MEDS: Piperacill/Tazo 3.375gm in Dex 3.375 GM/50 ML BAG IVPB SCH ×4 (00:07→17:42)
[2017-06-08 01:20] VITALS: RESP 18
[2017-06-08] MEDS: Lactated Ringer's 1,000 ML IV SCH (05:33)
[2017-06-08] MEDS: Oxycodone/Acetaminophen 5/325 mg Tab PO PRN ×3 (05:38→17:46)
[2017-06-08 07:47] LABS: HEMOGLOBIN 12.4 g/dL (12.0-16.0); MEAN CELL VOLUME 83.2 fl (81.0-99.0); MEAN CORPUSCULAR HEMOGLOBIN 28.1 pg (27.0-31.0); MEAN CORPUSCULAR HGB CONC 33.8 g/dL (33.0-37.0); RBC 4.42 Mil/uL (3.80-5.20); RED CELL DISTRIBUTION WIDTH 13.6 % (11.5-14.5); WHITE BLOOD COUNT 9.9 K/uL (4.8-10.8)
[2017-06-08 08:00] LABS: ALBUMIN 3.8 g/dL (3.5-5.0)
[2017-06-08 08:03] LABS: ALB/GLOB RATIO 1.2 (1.0-2.1); ALT/SGPT 117 U/L (9-52); AST/SGOT 72 U/L (14-36); BLOOD UREA NITROGEN 7 mg/dl (7-17); GFR AFRICAN-AMERICAN > 60; GFR NON-AFRICAN AMERICAN > 60
[2017-06-08 08:04] LABS: CALCIUM 9.1 mg/dL (8.4-10.2)
--- NOTE | 2017-06-08 09:20 | CP.PCM.PN ---
<CesaryelenaMaurice peña - Last Filed: 06/08/17 10:32> Subjective - Date & Time of Evaluation Date of Evaluation: 06/08/17 Time of Evaluation: 09:18 - Subjective Subjective: Surgery: Dr. Ayala Pt seen and examined. Resting comfortably in bed. Pain controlled. Tolerating CLD. Mild nausea overnight. Objective - Vital Signs/Intake and Output Vital Signs (last 24 hours): Temp Pulse Resp BP Pulse Ox 99 F 62 18 129/84 95 06/08/17 09:00 06/08/17 09:00 06/08/17 09:00 06/08/17 09:00 06/08/17 09:00 Intake and Output: 06/08/17 06/08/17 06:59 18:59 Intake Total 1200 Output Total 100 Balance 1100 - Medications Medications: Current Medications Hydromorphone HCl (Dilaudid) 1 mg IVP Q4 PRN PRN Reason: Pain, severe (8-10) Piperacillin Sod/Tazobactam Sod (Zosyn 3.375 Gm Iv Premix) 3.375 gm in 50 mls @ 50 mls/hr IVPB 0000,0600,1200,1800 [facility] Last Admin: 06/08/17 05:28 Dose: 50 mls/hr Lactated Ringer's (Lactated Ringer's) 1,000 mls @ 100 mls/hr IV .Q10H [facility] Ondansetron HCl (Zofran Inj) 4 mg IVP Q6 PRN PRN Reason: Nausea/Vomiting Oxycodone/Acetaminophen (Percocet 5/325 Mg Tab) 2 tab PO Q4 PRN PRN Reason: Pain, moderate (4-7) Stop: 06/10/17 21:06 Last Admin: 06/08/17 05:38 Dose: 2 tab - Labs Labs: 06/08/17 07:15 06/08/17 07:15 PT 12.8 Seconds (9.8-13.1) 06/05/17 03:06 INR 1.1 (0.9-1.2) 06/05/17 03:06 APTT 28.2 Seconds (25.6-37.1) 06/05/17 03:06 - Constitutional Appears: Non-toxic, No Acute Distress - Head Exam Head Exam: ATRAUMATIC, NORMOCEPHALIC - Eye Exam Eye Exam: EOMI - ENT Exam ENT Exam: Mucous Membranes Moist - Neck Exam Neck Exam: Full ROM - Respiratory Exam Respiratory Exam: NORMAL BREATHING PATTERN. absent: Accessory Muscle Use, Respiratory Distress - GI/Abdominal Exam GI & Abdominal Exam: Soft. absent: Distended, Firm, Guarding, Rigid, Tenderness , Rebound - Extremities Exam Extremities Exam: absent: Calf Tenderness, Pedal Edema - Neurological Exam Neurological Exam: Alert, Awake, Oriented x3 Assessment and Plan - Assessment and Plan (Free Text) Assessment: 21F w. cholelcysitis, s/p lap pito POD#1 -Tbili trending up, will continue to monitor -Pain management -encourage OOB and IS use -not cleared for D/C from surgical standpoint -will d/w attending Arthur PGY3 <James Ayala - Last Filed: 06/08/17 10:52> Subjective - Subjective Subjective: Patient was seen and examined at the bedside. Objective - Vital Signs/Intake and Output Vital Signs (last 24 hours): Temp Pulse Resp BP Pulse Ox 99 F 62 18 129/84 95 06/08/17 09:00 06/08/17 09:00 06/08/17 09:00 06/08/17 09:00 06/08/17 09:00 Intake and Output: 06/08/17 06/08/17 06:59 18:59 Intake Total 1200 Output Total 100 Balance 1100 - Medications Medications: Current Medications Hydromorphone HCl (Dilaudid) 1 mg IVP Q4 PRN PRN Reason: Pain, severe (8-10) Piperacillin Sod/Tazobactam Sod (Zosyn 3.375 Gm Iv Premix) 3.375 gm in 50 mls @ 50 mls/hr IVPB 0000,0600,1200,1800 [facility] Last Admin: 06/08/17 05:28 Dose: 50 mls/hr Ondansetron HCl (Zofran Inj) 4 mg IVP Q6 PRN PRN Reason: Nausea/Vomiting Oxycodone/Acetaminophen (Percocet 5/325 Mg Tab) 2 tab PO Q4 PRN PRN Reason: Pain, moderate (4-7) Stop: 06/10/17 21:06 Last Admin: 06/08/17 09:54 Dose: 2 tab - Labs Labs: 06/08/17 07:15 07/25/17 07:15 PT 12.8 Seconds (9.8-13.1) 06/05/17 03:06 INR 1.1 (0.9-1.2) 06/05/17 03:06 APTT 28.2 Seconds (25.6-37.1) 06/05/17 03:06 Assessment and Plan - Assessment and Plan (Free Text) Plan: - regular diet - pain control - Insentive spirometry - DVT ppx - Continue antibioticvs - Repeat labs in am - Will follow
--- NOTE | 2017-06-08 15:00 | CP.PCM.PN ---
Subjective - Date & Time of Evaluation Date of Evaluation: 06/08/17 Time of Evaluation: 11:45 - Subjective Subjective: No fever no CP no SOB mild abd pain ambulating around the unit + flatus no BM tolerating PO diet Objective - Vital Signs/Intake and Output Vital Signs (last 24 hours): Temp Pulse Resp BP Pulse Ox 99 F 62 18 129/84 95 06/08/17 09:00 06/08/17 09:00 06/08/17 09:00 06/08/17 09:00 06/08/17 09:00 Intake and Output: 06/08/17 06/08/17 06:59 18:59 Intake Total 1200 Output Total 100 Balance 1100 - Medications Medications: Current Medications Hydromorphone HCl (Dilaudid) 1 mg IVP Q4 PRN PRN Reason: Pain, severe (8-10) Piperacillin Sod/Tazobactam Sod (Zosyn 3.375 Gm Iv Premix) 3.375 gm in 50 mls @ 50 mls/hr IVPB 0000,0600,1200,1800 [facility] Last Admin: 06/08/17 12:27 Dose: 50 mls/hr Ondansetron HCl (Zofran Inj) 4 mg IVP Q6 PRN PRN Reason: Nausea/Vomiting Oxycodone/Acetaminophen (Percocet 5/325 Mg Tab) 2 tab PO Q4 PRN PRN Reason: Pain, moderate (4-7) Stop: 06/10/17 21:06 Last Admin: 06/08/17 09:54 Dose: 2 tab - Labs Labs: 06/08/17 07:15 06/08/17 07:15 PT 12.8 Seconds (9.8-13.1) 06/05/17 03:06 INR 1.1 (0.9-1.2) 06/05/17 03:06 APTT 28.2 Seconds (25.6-37.1) 06/05/17 03:06 - Constitutional Appears: No Acute Distress - Head Exam Head Exam: NORMAL INSPECTION, NORMOCEPHALIC - Eye Exam Eye Exam: EOMI, Normal appearance, PERRL Pupil Exam: NORMAL ACCOMODATION - ENT Exam ENT Exam: Mucous Membranes Moist, Normal External Ear Exam - Neck Exam Neck Exam: Full ROM. absent: Meningismus - Respiratory Exam Respiratory Exam: NORMAL BREATHING PATTERN. absent: Respiratory Distress - Cardiovascular Exam Cardiovascular Exam: REGULAR RHYTHM, +S1, +S2 - GI/Abdominal Exam GI & Abdominal Exam: Soft, Tenderness, Normal Bowel Sounds Additional comments: mild tenderness Upper abd - Extremities Exam Extremities Exam: Full ROM, Normal Capillary Refill, Normal Inspection - Back Exam Back Exam: Full ROM, NORMAL INSPECTION. absent: CVA tenderness (L), CVA tenderness (R) - Neurological Exam Neurological Exam: Alert, Awake, CN II-XII Intact, Normal Gait, Oriented x3 Neuro motor strength exam: Left Upper Extremity: 5, Right Upper Extremity: 5, Left Lower Extremity: 5, Right Lower Extremity: 5 - Psychiatric Exam Psychiatric exam: Normal Affect, Normal Mood - Skin Skin Exam: Dry, Normal Color, Warm Assessment and Plan - Assessment and Plan (Free Text) Assessment: 21 y/o female with asthma who comes in with 2-3 days of RUQ abd pain. She states it started Wednesday, and she went to her PCP who believed it was viral gastroenteritis. The pain continued intermittently, and got worse in frequency and intensity, and today was accompanied by n/v/d. Denies f/c. States she has intermittently had RUQ pain for the last several months, usually worsened by heavy/fatty foods like [employer]. Generally it has self-resolved. Denies any SOB or wheezing currently.CT abdomen and gallbladder US showed Cholelithiasis and Cholecystitis WBC 11k 1. Acute cholecystitis with cholelithiasis s/p Lap Cholecystectomy Surgery consulted - Lap Nemo done Ct of abd: showed cholelithiasis and cholecystitis Bilirubin, LFTs trending up - discussed with Dr Ayala- will keep pt for now and rpt LFTs MRCP showed no CBD stone Continue Zosyn IV pain management Pt toleratintg PO diet + flatus 2. Obesity Nutrition consult 3.DVt prophylaxis encourage ambulation Lovenox
[2017-06-08] MEDS ORDERED: Enoxaparin 40 mg Syringe SC STA (15:03)
--- NOTE | 2017-06-08 19:35 | OP ---
PREOPERATIVE DIAGNOSIS: Acute cholecystitis. POSTOPERATIVE DIAGNOSIS: Acute cholecystitis. PROCEDURE: Laparoscopic cholecystectomy. SURGEON: Dr. Ayala. HEAD SILVERMAN: Arden. SECOND HONEY PROCESSOR: Jonel. TYPE OF ANESTHESIA: General with endotracheal intubation. IV FLUIDS: Crystalloids. ESTIMATED BLOOD LOSS: 10 mL. INTRAOPERATIVE FINDINGS: Acute cholecystitis and cholelithiasis. INDICATIONS: Ms. Addison is a pleasant 21-year-old female who came to the hospital complaining of epigastric and right upper quadrant abdominal pain. Upon further investigation, the patient was found to have cholecystitis on ultrasound. While being in the hospital, the patient's liver enzymes have bumped up. So, the patient underwent MRCP showing no choledocholithiasis. All the risks and benefits of the procedure were explained to the patient, with the patient having a full understanding of all the risks and benefits involved. Informed consent was obtained and the patient was taken to the operating room for above-stated procedure. DESCRIPTION OF PROCEDURE: The patient was brought in to the operating room and placed supine on the operating table. Bilateral Flowtron boots were applied to the patient's lower extremities. After successful induction of anesthesia and successful endotracheal intubation by the anesthesia team, the patient's abdomen was prepped with ChloraPrep and then draped in a surgical fashion. Prior to the beginning of the procedure, time-out was called in the room and everyone in the room were in agreement. Using a #11 blade scalpel knife, a 5-mm incision was made on the right side of the patient's abdomen in a transverse fashion and subsequent to that, he was in the 5-mm Optiview Visiport. The patient's abdomen was under direct visualization, and pneumoperitoneum was achieved with good opening pressure. Once this was accomplished, attention was turned to the umbilical area. Using a #11 blade scalpel knife, a 1-cm incision was made in a longitudinal fashion in the umbilicus. Subsequent to that, a 11 mm trocar was introduced into the patient's abdomen. At that point in time, attention was turned to the subxiphoid area. Using a #11 blade scalpel knife, a 5-mm incision was made in a transverse fashion, and subsequent to that, another 5 mm trocar was introduced into the patient's abdomen. At that point in time, attention was turned back again to the right side of the patient's abdomen. Using a #11 blade scalpel knife, another 5-mm incision was made on the right side. Subsequent to that, another 5 mm trocar was introduced into the patient's abdomen. At that point in time, using two graspers, the gallbladder was grasped by the fundus and infundibulum and using [place] dissector, cystic duct and cystic artery were dissected out and critical view was achieved. At that point in time, the cystic duct was clipped with two clips, proximal, one and distal transected with laparoscopic scissor. Same thing was done for the cystic artery, it was clipped with two clips proximal, one distal and transected with laparoscopic scissor. At that point in time, gallbladder was dissected off the gallbladder fossa using hook electrocautery, and once the gallbladder was completely freed up from the gallbladder fossa, EndoCatch bag was introduced into the patient's abdomen. Gallbladder was placed inside of the bag and the bag was closed. At that point in time, gallbladder fossa was inspected for hemostasis. Hemostasis was achieved with hook electrocautery and the patient's gallbladder fossa and abdominal cavity were copiously irrigated with sterile saline and fluid was suctioned out. At that point in time, an 11-mm trocar together with EndoCatch bag and gallbladder were removed from the patient's abdomen and passed off to the as a specimen. Fascial layer at the umbilical port site was closed with two interrupted 0 Vicryl sutures and UR-5 needle and UR-6 needle. Once this was accomplished, the patient's abdomen was fully deflated. The rest of the trocars were removed from the patient's abdomen and the skin was closed with 4-0 Monocryl suture in a running subcuticular fashion. At the end of the procedure, the incision site was infiltrated with Marcaine anesthetic. The patient's abdomen was washed and dried and Dermabond was applied to the incision site. The patient was successfully extubated by the Anesthesia team, transferred to the stretcher and taken to the recovery room in a stable condition. At the end of the procedure, all instrument counts, needles and sponges were correct. James Ayala MD [facility] # [id number]
[2017-06-09] MEDS: Piperacill/Tazo 3.375gm in Dex 3.375 GM/50 ML BAG IVPB SCH ×2 (00:30→06:10)
[2017-06-09] MEDS: Oxycodone/Acetaminophen 5/325 mg Tab PO PRN (06:09)
[2017-06-09 07:27] LABS: HEMOGLOBIN 13.4 g/dL (12.0-16.0); MEAN CORPUSCULAR HGB CONC 33.4 g/dL (33.0-37.0); RBC 4.76 Mil/uL (3.80-5.20); RED CELL DISTRIBUTION WIDTH 13.8 % (11.5-14.5); WHITE BLOOD COUNT 8.2 K/uL (4.8-10.8)
[2017-06-09 07:49] LABS: ALB/GLOB RATIO 1.3 (1.0-2.1); ALBUMIN 4.1 g/dL (3.5-5.0); ALT/SGPT 140 U/L (9-52); AST/SGOT 76 U/L (14-36); BLOOD UREA NITROGEN 7 mg/dl (7-17); CALCIUM 9.2 mg/dL (8.4-10.2); GFR AFRICAN-AMERICAN > 60; GFR NON-AFRICAN AMERICAN > 60
[2017-06-09 08:40] VITALS: BP 117/75; PULSE 84; TEMP 98.9; O2SAT 97
[2017-06-09] MEDS ORDERED: Enoxaparin 40 mg Syringe SC SCH (09:00)
--- NOTE | 2017-06-09 10:36 | CP.PCM.DIS ---
Provider - Provider Date of Admission: 06/05/17 03:08 Attending physician: Stacey Hanson MD Primary care physician: Stacey Hanson MD Consults: Surgery consult Time Spent in preparation of Discharge (in minutes): 20 Hospital Course - Lab Results Lab Results: Most Recent Lab Values WBC 8.2 K/uL (4.8-10.8) 06/09/17 05:40 RBC 4.76 Mil/uL (3.80-5.20) 06/09/17 05:40 Hgb 13.4 g/dL (12.0-16.0) 06/09/17 05:40 Hct 40.0 % (34.0-47.0) 06/09/17 05:40 MCV 84.0 fl (81.0-99.0) 06/09/17 05:40 MCH 28.0 pg (27.0-31.0) 06/09/17 05:40 MCHC 33.4 g/dL (33.0-37.0) 06/09/17 05:40 RDW 13.8 % (11.5-14.5) 06/09/17 05:40 Plt Count 302 K/uL (130-400) 06/09/17 05:40 MPV 9.2 fl (7.2-11.7) 06/04/17 21:18 Neut % (Auto) 73.0 % (50.0-75.0) 06/04/17 21:18 Lymph % (Auto) 16.2 % (20.0-40.0) L 06/04/17 21:18 [place] % (Auto) 7.3 % (0.0-10.0) 06/04/17 21:18 Eos % (Auto) 2.8 % (0.0-4.0) 06/04/17 21:18 Baso % (Auto) 0.7 % (0.0-2.0) 06/04/17 21:18 Neut # 8.5 K/uL (1.8-7.0) H 06/04/17 21:18 Lymph # 1.9 K/uL (1.0-4.3) 06/04/17 21:18 [place] # 0.8 K/uL (0.0-0.8) 06/04/17 21:18 Eos # 0.3 K/uL (0.0-0.7) 06/04/17 21:18 Baso # 0.1 K/uL (0.0-0.2) 06/04/17 21:18 PT 12.8 Seconds (9.8-13.1) 06/05/17 03:06 INR 1.1 (0.9-1.2) 06/05/17 03:06 APTT 28.2 Seconds (25.6-37.1) 06/05/17 03:06 Sodium 140 mmol/l (132-148) 06/09/17 05:40 Potassium 4.1 MMOL/L (3.6-5.0) 06/09/17 05:40 Chloride 105 mmol/L (98-107) 06/09/17 05:40 Carbon Dioxide 23 mmol/L (22-30) 06/09/17 05:40 Anion Gap 15 (10-20) 06/09/17 05:40 BUN 7 mg/dl (7-17) 06/09/17 05:40 Creatinine 1.0 mg/dL (0.7-1.2) 06/09/17 05:40 Est GFR ( Amer) > 60 06/09/17 05:40 Est GFR (Non-Af Amer) > 60 06/09/17 05:40 Random Glucose 89 mg/dL (65-105) 06/09/17 05:40 Calcium 9.2 mg/dL (8.4-10.2) 06/09/17 05:40 Total Bilirubin 2.7 mg/dl (0.2-1.3) H 06/09/17 05:40 AST 76 U/L (14-36) H 06/09/17 05:40 ALT 140 U/L (9-52) H 06/09/17 05:40 Alkaline Phosphatase 69 U/L (38-126) 06/09/17 05:40 Total Protein 7.2 G/DL (6.3-8.2) 06/09/17 05:40 Albumin 4.1 g/dL (3.5-5.0) 06/09/17 05:40 Globulin 3.1 gm/dL (2.2-3.9) 06/09/17 05:40 Albumin/Globulin Ratio 1.3 (1.0-2.1) 06/09/17 05:40 Lipase 82 U/L (23-300) 06/04/17 21:18 - Hospital Course Hospital Course: 21 y/o female with asthma, obese came in with 2-3 days of RUQ abd pain. She stated that it started Wednesday, and she went to her PCP who believed it was viral gastroenteritis. The pain continued intermittently, and got worse in frequency and intensity, and today was accompanied by n/v/d. Denies f/c. States she had intermittently had RUQ pain for the last several months, usually worsened by heavy/fatty foods like [employer]. Generally it has self-resolved. Denies any SOB or wheezing currently.CT abdomen and gallbladder US showed Cholelithiasis and Cholecystitis WBC 11k Patient was admitted and started on Iv Zosyn. surgery was consulted MRCP was ordered to rule out CBD stone since bilirubin and LFT-s trended up. MRCP showed no CBD stone and clinically patient improved. She underwent lap cholecystectomy by general surgery with no complications. Post op tolerated pO intake, ambulating ,voiding well AND PAIN WELL controlled Her lab tests post op showed some trend up on LFT-s and bilirubin so she was kept under observation 1 more day. Subsequent liver profile showed trend down LFT-s and biliruin. patient is hemodynamically stable, afebrile, tolerating PO intake Cleared by surgery for discharge Will discharge patient home on PO Augmentin for 7 days and percoset PRN for pain. Advised follow up with in 1 week 1. Acute cholecystitis with cholelithiasis s/p Lap Cholecystectomy Ct of abd: showed cholelithiasis and cholecystitis MRCP showed no CBD stone Surgery consulted - Lap Nemo done received Zosyn IV and pain management Bilirubin, LFTs elevated but trending down. will need follow up as outpatient for repeat liver enzymes in 1 week toleratintg PO diet Continue Augmentin in 1 week 2. Obesity Nutrition consult 3.Transaminitis and elevated bilirubin Most likely related to cholecystitis, bilirubin 2.6 AST/ALT patient asymptomatic MRCP showed no CBD stone Follow up with in 1 week to repeat LFT-s 4.DVt prophylaxis encourage ambulation Discharge Exam - Head Exam Head Exam: ATRAUMATIC, NORMAL INSPECTION, NORMOCEPHALIC Additional comments: obese - Eye Exam Eye Exam: EOMI, Normal appearance, PERRL Pupil Exam: NORMAL ACCOMODATION - ENT Exam ENT Exam: Mucous Membranes Moist, Normal Exam - Neck Exam Neck exam: Full Rom, Normal Inspection - Respiratory Exam Respiratory Exam: Clear to PA & Lateral, NORMAL BREATHING PATTERN. absent: Rales, Rhonchi, Wheezes - Cardiovascular Exam Cardiovascular Exam: REGULAR RHYTHM, RRR, +S1, +S2. absent: JVD - GI/Abdominal Exam GI & Abdominal Exam: Normal Bowel Sounds, Soft. absent: Distended, Guarding, Rebound, Tenderness - Rectal Exam Rectal Exam: Deferred - Extremities Exam Extremities exam: normal capillary refill, normal inspection, pedal pulses present - Back Exam Back exam: NORMAL INSPECTION - Neurological Exam Neurological exam: Alert, CN II-XII Intact, Oriented x3, Reflexes Normal - Psychiatric Exam Psychiatric exam: Normal Affect, Normal Mood - Skin Skin Exam: Dry, Intact, Normal Color, Warm Discharge Plan - Discharge Medications Prescriptions: Amoxicillin/Clavulanate [Augmentin 875 MG-125 MG] 1 tab PO Q12 #14 tab oxyCODONE/Acetaminophen [Percocet 5/325 mg Tab] 1 tab PO Q4 PRN #20 tab PRN Reason: Pain, Moderate (4-7) - Follow Up Plan Condition: STABLE Disposition: HOME/ ROUTINE Patient education suggested?: Yes Instructions: Cholecystitis (DC), Heart Healthy Diet (DC), Laparoscopic Cholecystectomy (DC) Additional Instructions: follow up with dr Ayala in 1week Referrals: James Ayala MD [Staff Provider] -
--- NOTE | 2017-06-09 11:10 | CP.PCM.PN ---
<Maurice Gibson - Last Filed: 06/09/17 11:07> Subjective - Date & Time of Evaluation Date of Evaluation: 06/09/17 Time of Evaluation: 11:07 - Subjective Subjective: Surgery: Dr. Ayala Pt seen and examined. Resting comfortably in bed. Pain controlled. Tolerating diet. No F/C. Ambulating w. out difficulty Objective - Vital Signs/Intake and Output Vital Signs (last 24 hours): Temp Pulse Resp BP Pulse Ox 98.9 F 84 18 117/75 97 06/09/17 08:40 06/09/17 08:40 06/09/17 08:40 06/09/17 08:40 06/09/17 08:40 - Medications Medications: Current Medications Enoxaparin Sodium (Lovenox) 40 mg SC DAILY DANILO PRN Reason: Protocol Last Admin: 06/09/17 08:16 Dose: Not Given Hydromorphone HCl (Dilaudid) 1 mg IVP Q4 PRN PRN Reason: Pain, severe (8-10) Piperacillin Sod/Tazobactam Sod (Zosyn 3.375 Gm Iv Premix) 3.375 gm in 50 mls @ 50 mls/hr IVPB 0000,0600,1200,1800 DANILO Last Admin: 06/09/17 06:10 Dose: 50 mls/hr Ondansetron HCl (Zofran Inj) 4 mg IVP Q6 PRN PRN Reason: Nausea/Vomiting Last Admin: 06/09/17 08:28 Dose: 4 mg Oxycodone/Acetaminophen (Percocet 5/325 Mg Tab) 2 tab PO Q4 PRN PRN Reason: Pain, moderate (4-7) Stop: 06/10/17 21:06 Last Admin: 06/09/17 06:09 Dose: 2 tab - Labs Labs: 06/09/17 05:40 06/09/17 05:40 PT 12.8 Seconds (9.8-13.1) 06/05/17 03:06 INR 1.1 (0.9-1.2) 06/05/17 03:06 APTT 28.2 Seconds (25.6-37.1) 06/05/17 03:06 - Constitutional Appears: Non-toxic, No Acute Distress - Head Exam Head Exam: ATRAUMATIC, NORMOCEPHALIC - Eye Exam Eye Exam: EOMI. absent: Scleral icterus - ENT Exam ENT Exam: Mucous Membranes Moist, Normal External Ear Exam - Neck Exam Neck Exam: Full ROM - Respiratory Exam Respiratory Exam: NORMAL BREATHING PATTERN. absent: Accessory Muscle Use, Respiratory Distress - GI/Abdominal Exam GI & Abdominal Exam: Soft. absent: Distended, Firm, Guarding, Rigid, Tenderness , Rebound - Extremities Exam Extremities Exam: absent: Calf Tenderness, Pedal Edema - Neurological Exam Neurological Exam: Alert, Awake, Oriented x3 Assessment and Plan - Assessment and Plan (Free Text) Assessment: 21F w. cholecystitis, s/p lap pito, POD#2 -LFTs trending down -Clear for D/C from surgical standpoint -Pt can have LFTs checked outpatient -Abx for 1 week, rx in chart -Pt to f/u w. Dr. Ayala in 1-2 weeks -d/w attending Arthur PGY3 <James Ayala - Last Filed: 06/09/17 11:41> Subjective - Subjective Subjective: Patient was seen and examined at the bedside. Agree with resident's note above. Objective - Vital Signs/Intake and Output Vital Signs (last 24 hours): Temp Pulse Resp BP Pulse Ox 98.9 F 84 18 117/75 97 06/09/17 08:40 06/09/17 08:40 06/09/17 08:40 06/09/17 08:40 06/09/17 08:40 - Medications Medications: Current Medications Enoxaparin Sodium (Lovenox) 40 mg SC DAILY DANILO PRN Reason: Protocol Last Admin: 06/09/17 08:16 Dose: Not Given Hydromorphone HCl (Dilaudid) 1 mg IVP Q4 PRN PRN Reason: Pain, severe (8-10) Piperacillin Sod/Tazobactam Sod (Zosyn 3.375 Gm Iv Premix) 3.375 gm in 50 mls @ 50 mls/hr IVPB 0000,0600,1200,1800 DANILO Last Admin: 06/09/17 06:10 Dose: 50 mls/hr Ondansetron HCl (Zofran Inj) 4 mg IVP Q6 PRN PRN Reason: Nausea/Vomiting Last Admin: 06/09/17 08:28 Dose: 4 mg Oxycodone/Acetaminophen (Percocet 5/325 Mg Tab) 2 tab PO Q4 PRN PRN Reason: Pain, moderate (4-7) Stop: 06/10/17 21:06 Last Admin: 06/09/17 06:09 Dose: 2 tab - Labs Labs: 06/09/17 05:40 06/09/17 05:40 PT 12.8 Seconds (9.8-13.1) 06/05/17 03:06 INR 1.1 (0.9-1.2) 06/05/17 03:06 APTT 28.2 Seconds (25.6-37.1) 06/05/17 03:06
== END 2017-06-09 12:18 | disposition home or self-care (01) | DRG 419 ==
LOC: H.ER 20:11 → H.EROBSV 23:00 → OBSVTOIN 06-05 03:08 → H.MEDSURG1 06-05 04:49
PROVIDERS: ADMIT Emergency Medicine; ATTEND Emergency Medicine
PROC: 0FT44ZZ Resection of Gallbladder, Percutaneous Endoscopic Approach (ICD-10-PCS; principal; 2017-06-07 19:00)
DX: K80.00 Calculus of gallbladder with acute cholecystitis without obstruction (principal); E66.9 Obesity, unspecified; J45.909 Unspecified asthma, uncomplicated; R74.0 Nonspecific elevation of levels of transaminase and lactic acid dehydrogenase [LDH]

== ENCOUNTER 2017-06-14 14:24 | Inpatient (IN) | payer BC ==
[2017-06-14] MEDS ORDERED: Piperacillin/Tazobact 4.5 GM in Sodium Chloride 0.9% 100 ML IVPB STA (15:16)
[2017-06-14] MEDS ORDERED: Sodium Chloride 0.9% 1,000 ML IV STA (15:16)
[2017-06-14] MEDS ORDERED: Piperacillin/Tazobact 3.375 gm Inj IVPB ONE (16:09)
[2017-06-14 16:29] LABS: VENOUS BLOOD GAS PCO2 42 mmHg (40-60); VENOUS BLOOD GAS PO2 45 mm/Hg (30-55)
--- NOTE | 2017-06-14 16:34 | ED PDOC ---
HPI: Abdomen Time Seen by Provider: 06/14/17 15:15 Chief Complaint (Nursing): Abdominal Pain Chief Complaint (Provider): abdominal pain History Per: Patient (22 y/o female s/p cholecystectomy 7 days ago here for epigastric pain x vomiting x 3-4 days associated with yellowing discoloration of skin. Denies any fevers/chills. Has had diarrhea. Denies any urinary difficulty. ) Past Medical History Reviewed: Historical Data, Nursing Documentation, Vital Signs Vital Signs: Last Vital Signs Temp 98 F 06/14/17 14:27 Pulse 86 06/14/17 14:27 Resp 18 06/14/17 14:27 BP 126/81 06/14/17 14:27 Pulse Ox 98 06/14/17 18:49 - Medical History PMH: Asthma (last attack 3yrs ago after running in school), Gall Bladder Disease Denies: HIV, Chronic Kidney Disease - Surgical History Surgical History: Cholecystectomy (06/07/17), Tonsillectomy (11 yrs ago) - Family History Family History: States: Unknown Family Hx - Home Medications Home Medications: Ambulatory Orders Medication Instructions Recorded Amoxicillin/Clavulanate [Augmentin 1 tab PO Q12 #14 tab 06/09/17 875 MG-125 MG] oxyCODONE/Acetaminophen [Percocet 1 tab PO Q4 PRN #20 tab 06/09/17 5/325 mg Tab] - Allergies Allergies/Adverse Reactions: Allergies Allergy/AdvReac Type Severity Reaction Status Date / Time No Known Allergies Allergy Verified 06/04/17 20:21 Review of Systems ROS Statement: Except As Marked, All Systems Reviewed And Found Negative Gastrointestinal: Positive for: Abdominal Pain, Diarrhea Physical Exam - Reviewed Nursing Documentation Reviewed: Yes Vital Signs Reviewed: Yes - Physical Exam Appears: Positive for: Well, Non-toxic, No Acute Distress Head Exam: Positive for: ATRAUMATIC, NORMAL INSPECTION, NORMOCEPHALIC Skin: Positive for: Normal Color, Warm, DRY Eye Exam: Positive for: EOMI, Normal appearance, PERRL ENT: Positive for: Normal ENT Inspection Neck: Positive for: Normal, Painless ROM Cardiovascular/Chest: Positive for: Regular Rate, Rhythm Respiratory: Positive for: CNT, Normal Breath Sounds Gastrointestinal/Abdominal: Positive for: Normal Exam, Bowel Sounds, Soft, Tenderness (epigastric tenderness noted) Back: Positive for: Normal Inspection Extremity: Positive for: Normal ROM Neurologic/Psych: Positive for: Alert, Oriented - Laboratory Results Result Diagrams: 06/14/17 16:23 06/14/17 16:23 Urine POC: Negative Urine dip results: Positive for: Leukocyte Esterase, Blood. Negative for: Nitrate, Ketones, Glucose, Bilirubin, Protein - ECG O2 Sat by Pulse Oximetry: 98 - Progress ED Course And Treament: d/w Dr. Zepeda 15:20. Will await bloodwork/US prior to additional imaging ZOSYN 4.5 GM IV X 1 DOSE US abdomen: 1. There is absence of the normal gallbladder consistent with cholecystectomy. There is an anechoic or cystic collection in the gallbladder fossa which measures a maximum of 2.7 cm , possible postoperative fluid collection or biloma versus remnant of the gallbladder. 2. The common bile duct is dilated measuring 8mm diameter likely due to cholecystectomy with no visible choledocholithiasis to the extent visualized. RESULTS D/W DR. ZEPEDA. MRCP ORDERED CALL PLACED TO HOSPITALIST FOR ADMISSION D/W DR. YAÑEZ FOR GI CONSULT Disposition - Clinical Impression Clinical Impression: Biliary obstruction - Patient ED Disposition Is Patient to be Admitted: Yes - Disposition Disposition Time: 19:00 Condition: FAIR Forms: [employer] (Nepali) - Pt Status Changed To: Hospital Disposition Of: Inpatient - Admit Certification Admit to Inpatient:: After my assessment, the patient will require hospitalization for at least two midnights. This is because of the severity of symptoms shown, intensity of services needed, and/or the medical risk in this patient being treated as an outpatient.
[2017-06-14 16:35] LABS: BASO # 0.1 K/uL (0.0-0.2); EOS # 0.1 K/uL (0.0-0.7); HEMOGLOBIN 13.6 g/dL (12.0-16.0); MEAN CELL VOLUME 84.3 fl (81.0-99.0); MEAN CORPUSCULAR HEMOGLOBIN 28.2 pg (27.0-31.0); MEAN CORPUSCULAR HGB CONC 33.4 g/dL (33.0-37.0); MEAN PLATELET VOLUME 9.4 fl (7.2-11.7); MONO # 0.7 K/uL (0.0-0.8); MONO % 9.8 % (0.0-10.0); NEUT % 73.2 % (50.0-75.0); NRBC % 0.1 % (0.0-0.0); RBC 4.81 Mil/uL (3.80-5.20); RED CELL DISTRIBUTION WIDTH 14.2 % (11.5-14.5); WHITE BLOOD COUNT 6.9 K/uL (4.8-10.8)
[2017-06-14 16:38] LABS: SQUAMOUS EPITHIAL 12 /hpf (0-5); URINE BACTERIA OCC (<OCC); URINE BILIRUBIN MODERATE (NEGATIVE); URINE BLOOD LARGE (NEGATIVE); URINE CLARITY CLOUDY (Clear); URINE COLOR AMBER (YELLOW); URINE GLUCOSE (UA) NEG (Normal); URINE LEUKOCYTE ESTERASE NEG Leu/uL (Negative); URINE NITRATE NEGATIVE (NEGATIVE); URINE PROTEIN 30 mg/dL (NEGATIVE)
[2017-06-14 16:40] LABS: ALB/GLOB RATIO 1.3 (1.0-2.1); ALBUMIN 4.5 g/dL (3.5-5.0); AST/SGOT 536 U/L (14-36); BLOOD UREA NITROGEN 5 mg/dl (7-17); CALCIUM 9.8 mg/dL (8.4-10.2); GFR AFRICAN-AMERICAN > 60; GFR NON-AFRICAN AMERICAN > 60; LIPASE 74 U/L (23-300)
[2017-06-14 16:47] LABS: ALT/SGPT 1211 U/L (9-52)
--- NOTE | 2017-06-14 19:45 | CP.PCM.HP ---
History of Present Illness - History of Present Illness History of Present Illness: PCP: None Chief complaint: Abdominal pain/vomiting s/p lap pito HPI: 21 years old female with hx of Asthma and Laparoscopic Cholecystectomy done on 06/07/17, discharged on 06/09/17, comes with 3-4 days of continuous, non- radiating epigastric pains, not relieved by the analgesics taken and associated with nausea, vomits, cannot keep down solids nor liquids. She also referred mild dizziness , Yellow coloration of the skin and diarrhea. No fever, chills, dysuria nor urinary symptoms. MHx: Asthma, last attack 3 years ago; Cholelithiasis SHx: Tonsils 11 years ago; Laparoscopic Cholecystectomy on 06/07/17 Allergies: NKDA Medications: Augmentin/ Percocet/ Tylenol Family Hx: no significant illnesses Social Hx: Lives with family, no tobacco or EtOH Present on Admission - Present on Admission Any Indicators Present on Admission: No History of DVT/PE: No History of Uncontrolled Diabetes: No Urinary Catheter: No Decubitus Ulcer Present: No Review of Systems - Constitutional Constitutional: absent: Anorexia, Chills, Fever, Headache - EENT Eyes: absent: Diplopia, Floaters, Requires Corrective Lenses Ears: absent: Decreased Hearing, Ear Discharge, Ear Pain, Tinnitus Nose/Mouth/Throat: absent: Epistaxis, Nasal Congestion, Nasal Discharge - Cardiovascular Cardiovascular: absent: Chest Pain, Dyspnea, Edema - Respiratory Respiratory: absent: Cough, Dyspnea, Wheezing, Stridor - Gastrointestinal Gastrointestinal: Diarrhea, Nausea, Vomiting Additional comments: Epigastric abdominal pains. - Genitourinary Genitourinary: absent: Dysuria, Flank Pain, Hematuria - Musculoskeletal Musculoskeletal: Back Pain. absent: Muscle Cramps, Muscle Weakness, Numbness - Integumentary Integumentary: absent: Pruritus, Rash, Skin Ulcer, Sores, Striae, Swelling - Neurological Neurological: Dizziness. absent: Confusion, Focal Weakness, Headaches, Weakness - Psychiatric Psychiatric: absent: Anxiety, Depression, Panic Attacks - Endocrine Endocrine: absent: Palpitations, Polydipsia, Polyphagia, Polyuria - Hematologic/Lymphatic Hematologic: absent: Easy Bleeding, Easy Bruising Past Patient History - Past Medical History & Family History Past Medical History?: Yes - Past Social History Smoking Status: Never Smoked Chewing Tobacco Use: No Cigar Use: No Alcohol: None Drugs: Denies Home Situation {Lives}: With Family - CARDIAC Hx Cardiac Disorders: No - PULMONARY Hx Asthma: Yes (last attack 3yrs ago after running in school) - NEUROLOGICAL Hx Neurological Disorder: No - HEENT Hx HEENT Problems: No - RENAL Hx Chronic Kidney Disease: No - ENDOCRINE/METABOLIC Hx Endocrine Disorders: No - HEMATOLOGICAL/ONCOLOGICAL Hx Human Immunodeficiency Virus (HIV): No - INTEGUMENTARY Hx Dermatological Problems: No - MUSCULOSKELETAL/RHEUMATOLOGICAL Hx Musculoskeletal Disorders: No Hx Falls: No - GASTROINTESTINAL Hx Gall Bladder Disease: Yes - GENITOURINARY/GYNECOLOGICAL Hx Genitourinary Disorders: No - PSYCHIATRIC Hx Psychophysiologic Disorder: No Hx Substance Use: No - SURGICAL HISTORY Hx Cholecystectomy: Yes (06/07/17) Hx Tonsillectomy: Yes (11 yrs ago) - ANESTHESIA Hx Anesthesia: Yes Hx Anesthesia Reactions: No Hx Malignant Hyperthermia: No Meds Allergies/Adverse Reactions: Allergies Allergy/AdvReac Type Severity Reaction Status Date / Time No Known Allergies Allergy Verified 06/04/17 20:21 Physical Exam - Constitutional Appears: Non-toxic - Head Exam Head Exam: ATRAUMATIC, NORMAL INSPECTION, NORMOCEPHALIC - Eye Exam Eye Exam: EOMI, Normal appearance Pupil Exam: NORMAL ACCOMODATION, PERRL - ENT Exam ENT Exam: Mucous Membranes Moist, Normal Exam, Normal External Ear Exam, Normal Oropharynx - Neck Exam Neck exam: Positive for: Full Rom, Normal Inspection. Negative for: Lymphadenopathy, Tenderness - Respiratory Exam Respiratory Exam: Clear to Auscultation Bilateral. absent: Rales, Rhonchi, Wheezes - Cardiovascular Exam Cardiovascular Exam: REGULAR RHYTHM, RRR, +S1, +S2. absent: Gallop, JVD - GI/Abdominal Exam Additional comments: Obese, +ve bowel sounds, mild epigastric tenderness, no rebound nor guarding. - Rectal Exam Rectal Exam: Deferred - Extremities Exam Extremities exam: Positive for: full ROM, normal inspection. Negative for: calf tenderness, joint swelling, pedal edema - Back Exam Back exam: NORMAL INSPECTION. absent: CVA tenderness (L), CVA tenderness (R) - Neurological Exam Neurological exam: Alert, CN II-XII Intact, Oriented x3, Reflexes Normal - Psychiatric Exam Psychiatric exam: Normal Affect, Normal Mood - Skin Skin Exam: Dry, Intact, Warm Additional comments: Jaundice skin Results - Vital Signs Recent Vital Signs: Last Vital Signs Temp 98 F 07/31/17 14:27 Pulse 86 06/14/17 14:27 Resp 18 06/14/17 14:27 BP 126/81 06/14/17 14:27 Pulse Ox 98 06/14/17 19:22 - Labs Result Diagrams: 06/14/17 16:23 06/14/17 16:23 Labs: Laboratory Results - last 24 hr 06/14/17 06/14/17 06/14/17 16:09 16:20 16:23 WBC 6.9 RBC 4.81 Hgb 13.6 Hct 40.6 MCV 84.3 MCH 28.2 MCHC 33.4 RDW 14.2 Plt Count 327 MPV 9.4 Neut % (Auto) 73.2 Lymph % (Auto) 14.0 L [place] % (Auto) 9.8 Eos % (Auto) 2.0 Baso % (Auto) 1.0 Neut # 5.0 Lymph # 1.0 [place] # 0.7 Eos # 0.1 Baso # 0.1 pO2 45 VBG pH 7.40 VBG pCO2 42 VBG HCO3 25.3 VBG Total CO2 27.3 VBG O2 Sat (Calc) 86.7 H VBG Base Excess 1.0 VBG Potassium 3.5 L Sodium 136.0 Chloride 105.0 Glucose 101 Lactate 0.9 FiO2 21.0 Potassium Carbon Dioxide Anion Gap BUN Creatinine Est GFR ( Amer) Est GFR (Non-Af Amer) Random Glucose Calcium Total Bilirubin AST ALT Alkaline Phosphatase Total Protein Albumin Globulin Albumin/Globulin Ratio Lipase Venous Blood Potassium 3.5 L Urine Color Stormy Urine Clarity Cloudy Urine pH 6.0 Ur Specific [place] 1.019 Urine Protein 30 Urine Glucose (UA) Neg Urine Ketones Negative Urine Blood Large Urine Nitrate Negative Urine Bilirubin Moderate Urine Urobilinogen 4.0 H Ur Leukocyte Esterase Neg Urine RBC (Auto) 809 H Urine Microscopic WBC 14 H Ur Squamous Epith Cells 12 H Urine Bacteria Occ H 06/14/17 16:23 WBC RBC Hgb Hct MCV MCH MCHC RDW Plt Count MPV Neut % (Auto) Lymph % (Auto) [place] % (Auto) Eos % (Auto) Baso % (Auto) Neut # Lymph # [place] # Eos # Baso # pO2 VBG pH VBG pCO2 VBG HCO3 VBG Total CO2 VBG O2 Sat (Calc) VBG Base Excess VBG Potassium Sodium 141 Chloride 103 Glucose Lactate FiO2 Potassium 3.6 Carbon Dioxide 26 Anion Gap 15 BUN 5 L Creatinine 0.8 Est GFR ( Amer) > 60 Est GFR (Non-Af Amer) > 60 Random Glucose 105 Calcium 9.8 Total Bilirubin 6.7 H AST 536 H D ALT 1211 H Alkaline Phosphatase 224 H D Total Protein 7.9 Albumin 4.5 Globulin 3.4 Albumin/Globulin Ratio 1.3 Lipase 74 Venous Blood Potassium Urine Color Urine Clarity Urine pH Ur Specific [place] Urine Protein Urine Glucose (UA) Urine Ketones Urine Blood Urine Nitrate Urine Bilirubin Urine Urobilinogen Ur Leukocyte Esterase Urine RBC (Auto) Urine Microscopic WBC Ur Squamous Epith Cells Urine Bacteria - Imaging and Cardiology US - abdomen Status: Report reviewed by me Additional comment: US Abdomen Limited, Right Upper Quadrant FINDINGS: Liver: The hepatic parenchyma is echogenic consistent with diffuse fatty liver. No intrahepatic bile duct dilation. Gallbladder: There is absence of the normal gallbladder consistent with cholecystectomy. There is an anechoic or cystic collection in the gallbladder fossa which measures a maximum of 2.7 cm, possible postoperative fluid collection or biloma versus remnant of the gallbladder. The common bile duct is dilated measuring 8mm diameter likely due to cholecystectomy with no visible choledocholithiasis to the extent visualized. Common bile duct: See above. Pancreas: Unremarkable as visualized. Right kidney: Unremarkable. No stones. No solid mass. No hydronephrosis. IMPRESSION: 1. There is absence of the normal gallbladder consistent with cholecystectomy. There is an anechoic or cystic collection in the gallbladder fossa which measures a maximum of 2.7 cm , possible postoperative fluid collection or biloma versus remnant of the gallbladder. 2. The common bile duct is dilated measuring 8mm diameter likely due to cholecystectomy with no visible choledocholithiasis to the extent visualized. Assessment & Plan - Assessment and Plan (Free Text) Plan: 21 years old female with hx of Asthma and Laparoscopic Cholecystectomy done on , discharged on 06/09/17, comes with 3-4 days of continuous, non-radiating epigastric pains, associated with nausea, vomits. She also referred mild dizziness , Yellow coloration of the skin and diarrhea. #. Elevated liver enzymes with Jaundice s/p Laparoscopic Cholecystectomy r/o Choledocolithiasis - Admit to - Consult Dr Priest GI - Consult Dr Zepeda surgeon - NPO - IV fluid - Empiric Zosyn - Zofran - MRCP ordered by GI - follow LFT #. Epigastric Pains, post surgical - Pepcid - Analgesic #. DVT prophylaxis with SCD #. Code Status: Full - Date & Time Date: 06/14/17 Time: 19:45
[2017-06-14] MEDS ORDERED: POTASSIUM CHLORIDE IV SCH (20:15)
[2017-06-14] MEDS ORDERED: NS IV SCH (20:15)
[2017-06-14] MEDS ORDERED: DEXTROSE IV SCH (20:15)
--- NOTE | 2017-06-14 20:59 | CP.PCM.CON ---
History of Present Illness - History of Present Illness History of Present Illness: Surgery: Dr. Zepeda CC: Abd pain HPI: 22F underwent lap pito on 06/07. Post-operatively pt had elevated LFTs which trended down and she was clear for D/C from surgical standpoint with instructions to have LFTs tested outpt. Pt states that soon after returning home she began to develop N/V/D. The N/V/D increased in severity and was soon accompanied by epigastric pain. Pt states that she later became jaundiced. She denies F/C. No MOORE/blurred vision. No CP/palpitations. No SOB/cough. No hematuria /dysuria/dark urine. No pruritus. PMH: asthma PSH: lap pito Meds: none NKDA Social: No ETOH/tobacco/drugs Fhx: non-contributory Review of Systems - Review of Systems All systems: reviewed and no additional remarkable complaints except (HPI) Past Patient History - Past Medical History & Family History Past Medical History?: Yes - Past Social History Smoking Status: Never Smoked Chewing Tobacco Use: No Cigar Use: No Alcohol: None Drugs: Denies Home Situation {Lives}: With Family - CARDIAC Hx Cardiac Disorders: No - PULMONARY Hx Asthma: Yes (last attack 3yrs ago after running in school) - NEUROLOGICAL Hx Neurological Disorder: No - HEENT Hx HEENT Problems: No - RENAL Hx Chronic Kidney Disease: No - ENDOCRINE/METABOLIC Hx Endocrine Disorders: No - HEMATOLOGICAL/ONCOLOGICAL Hx Human Immunodeficiency Virus (HIV): No - INTEGUMENTARY Hx Dermatological Problems: No - MUSCULOSKELETAL/RHEUMATOLOGICAL Hx Musculoskeletal Disorders: No Hx Falls: No - GASTROINTESTINAL Hx Gall Bladder Disease: Yes - GENITOURINARY/GYNECOLOGICAL Hx Genitourinary Disorders: No - PSYCHIATRIC Hx Psychophysiologic Disorder: No Hx Substance Use: No - SURGICAL HISTORY Hx Cholecystectomy: Yes (06/07/17) Hx Tonsillectomy: Yes (11 yrs ago) - ANESTHESIA Hx Anesthesia: Yes Hx Anesthesia Reactions: No Hx Malignant Hyperthermia: No Meds Allergies/Adverse Reactions: Allergies Allergy/AdvReac Type Severity Reaction Status Date / Time No Known Allergies Allergy Verified 06/04/17 20:21 - Medications Medications: Current Medications Famotidine (Pepcid) 20 mg IVP Q12 [facility] Piperacillin Sod/Tazobactam (Sod 3.375 gm/ Sodium Chloride) 100 mls @ 100 mls/ hr IVPB Q6 [facility] Potassium Chloride 20 meq/ (Dextrose/Sodium Chloride) 1,010 mls @ 100 mls/hr IV .Q10H6M [facility] Stop: 06/15/17 20:16 Ondansetron HCl (Zofran Inj) 4 mg IVP Q4 PRN PRN Reason: Nausea/Vomiting Physical Exam - Constitutional Appears: Non-toxic, No Acute Distress, Other (Jaundice) - Head Exam Head Exam: ATRAUMATIC, NORMOCEPHALIC - Eye Exam Eye Exam: EOMI, Scleral icterus - ENT Exam ENT Exam: Mucous Membranes Moist, Normal External Ear Exam - Neck Exam Neck exam: Positive for: Full Rom - Respiratory Exam Respiratory Exam: NORMAL BREATHING PATTERN. absent: Accessory Muscle Use, Respiratory Distress - Cardiovascular Exam Cardiovascular Exam: REGULAR RHYTHM - GI/Abdominal Exam GI & Abdominal Exam: Soft. absent: Distended, Firm, Guarding, Rebound, Rigid, Tenderness Additional comments: incisions C/D/I w. dermabond in place - Extremities Exam Extremities exam: Negative for: calf tenderness, pedal edema - Neurological Exam Neurological exam: Alert, Oriented x3 - Psychiatric Exam Psychiatric exam: Normal Affect, Normal Mood - Skin Skin Exam: Dry, Normal Color, Warm Results - Vital Signs Recent Vital Signs: Last Vital Signs Temp 98 F 06/14/17 14:27 Pulse 86 06/14/17 14:27 Resp 18 06/14/17 14:27 BP 126/81 06/14/17 14:27 Pulse Ox 98 06/14/17 19:22 - Labs Result Diagrams: 06/14/17 16:23 06/14/17 16:23 - Imaging and Cardiology US - abdomen Status: Image reviewed by me, Report reviewed by me Assessment & Plan - Assessment and Plan (Free Text) Assessment: 22F s/p lap pito w. abd pain and transaminitis. R/O bile duct leak -F/U MRCP -F/U GI recommendations -NPO -IVF -zofran -pain meds -d/w attending Zemaitis PGY3
[2017-06-15] MEDS: Piperacillin/Tazobact 3.375 GM in Sodium Chloride 0.9% 100 ML IVPB SCH ×4 (03:56→21:56)
[2017-06-15] MEDS ORDERED: Pneumococcal 23-Valent Vaccine IM ONE (06:00)
[2017-06-15 07:20] LABS: ALB/GLOB RATIO 1.3 (1.0-2.1); ALBUMIN 4.1 g/dL (3.5-5.0); ALT/SGPT 953 U/L (9-52); AST/SGOT 375 U/L (14-36); BILIRUBIN,DIRECT 4.5 mg/ml (0.0-0.4); BLOOD UREA NITROGEN 4 mg/dl (7-17); CALCIUM 9.6 mg/dL (8.4-10.2); GFR AFRICAN-AMERICAN > 60; GFR NON-AFRICAN AMERICAN > 60
--- NOTE | 2017-06-15 09:26 | CP.PCM.PN ---
Subjective - Date & Time of Evaluation Date of Evaluation: 06/15/17 Time of Evaluation: 07:05 - Subjective Subjective: General Surgery Progress Note for Dr. Zepeda Patient seen and examined at bedside. No acute event overnight. Patient resting in bed comfortably. She is complaining of belching and nausea. Patient still has some abdominal discomfort. Denies fever/chills, cp, sob. Objective - Vital Signs/Intake and Output Vital Signs (last 24 hours): Temp Pulse Resp BP Pulse Ox 99.1 F 69 18 124/75 97 06/15/17 08:44 06/15/17 08:44 06/15/17 08:44 06/15/17 08:44 06/15/17 08:44 - Medications Medications: Current Medications Famotidine (Pepcid) 20 mg IVP Q12 [facility] Hydromorphone HCl (Dilaudid) 1 mg IVP Q4 PRN PRN Reason: Pain, moderate (4-7) Piperacillin Sod/Tazobactam (Sod 3.375 gm/ Sodium Chloride) 100 mls @ 100 mls/ hr IVPB Q6 [facility] Last Admin: 06/15/17 03:56 Dose: 100 mls/hr Potassium Chloride 20 meq/ (Dextrose/Sodium Chloride) 1,010 mls @ 100 mls/hr IV .Q10H6M [facility] Stop: 06/15/17 20:16 Last Admin: 06/15/17 06:35 Dose: Not Given Ondansetron HCl (Zofran Inj) 4 mg IVP Q4 PRN PRN Reason: Nausea/Vomiting - Labs Labs: 06/15/17 06:00 - Constitutional Appears: No Acute Distress, Other (jaundice) - Head Exam Head Exam: ATRAUMATIC, NORMOCEPHALIC - Eye Exam Eye Exam: EOMI, Scleral icterus - ENT Exam ENT Exam: Mucous Membranes Moist - Neck Exam Neck Exam: Full ROM - Respiratory Exam Respiratory Exam: NORMAL BREATHING PATTERN - Cardiovascular Exam Cardiovascular Exam: REGULAR RHYTHM - GI/Abdominal Exam GI & Abdominal Exam: Soft. absent: Distended, Guarding, Tenderness, Rebound Additional comments: incisions are clean, dry and intact with dermabond in place - Extremities Exam Extremities Exam: absent: Calf Tenderness, Pedal Edema - Neurological Exam Neurological Exam: Alert, Awake, Oriented x3 - Psychiatric Exam Psychiatric exam: Normal Affect, Normal Mood - Skin Skin Exam: Dry, Intact, Warm Additional comments: jaundice Assessment and Plan - Assessment and Plan (Free Text) Plan: 22 F s/p laparoscopic cholecystectomy (06/07) presents with abdominal pain, jaundice and transaminitis. Rule out bile duct leak -MRCP: mild intrahepatic dilatation, possible distal cbd stone -f/u GI recommendations -NPO -IVF -zofran -pain meds -DW Dr. Duane Zaman PGY-1
--- NOTE | 2017-06-15 10:39 | US ---
HISTORY: juandice/epigastric pain COMPARISON: None. TECHNIQUE: Sonographic evaluation of the right upper quadrant of the abdomen. FINDINGS: LIVER: Measures 15.1 cm in length. Diffusely increased echogenicity of the liver parenchyma. Consistent with fatty infiltration. No mass. No intrahepatic biliary ductal dilatation. Smooth contour. GALLBLADDER: Status post cholecystectomy. Fluid collection in gallbladder fossa 1 week status post cholecystectomy. This collection measures approximately 2.6 x 1.7 cm. This may represent a postoperative seroma or a small focal bile leak. COMMON BILE DUCT: Measures 8 mm. No evidence of choledocholithiasis. PANCREAS: Limited visualization. No gross abnormality. RIGHT KIDNEY: Measures 11.2 cm in length. Normal echogenicity. No calculus, mass, or hydronephrosis. AORTA: No aneurysmal dilatation. IVC: Unremarkable. OTHER FINDINGS: None . IMPRESSION: Fluid collection in gallbladder fossa, 1.7 x 2.6 cm, status post cholecystectomy. Possible postoperative collection versus bile leak. 8 mm common bile duct may reflect recent cholecystectomy. No intrahepatic biliary dilatation. Fatty infiltration of the liver. Preliminary interpretation of this examination was reported by [facility] at 6:47 p.m. on 06/14/2017. There is concurrence of this report with the preliminary interpretation.
--- NOTE | 2017-06-15 10:54 | CP.PCM.PN ---
Subjective - Date & Time of Evaluation Date of Evaluation: 06/15/17 Time of Evaluation: 08:30 - Subjective Subjective: Patient was seen and examined at bedside; was not in acute distress. She endorsed that the pain had resolved with medication and that she is glad about that. At the time patient was seen, she was aware that she was to have MRCP done later today. She verbalized being nervous about pain recurring. Patient did not offer any new complaints. Denied chest pain, shortness of breath, new abdominal pain, nausea, vomiting, diarrhea, leg/calf pain/swelling. Objective - Vital Signs/Intake and Output Vital Signs (last 24 hours): Temp Pulse Resp BP Pulse Ox 99.1 F 69 18 124/75 97 06/15/17 08:44 06/15/17 08:44 06/15/17 08:44 06/15/17 08:44 06/15/17 08:44 - Medications Medications: Current Medications Famotidine (Pepcid) 20 mg IVP Q12 [facility] Last Admin: 06/15/17 09:34 Dose: 20 mg Hydromorphone HCl (Dilaudid) 1 mg IVP Q4 PRN PRN Reason: Pain, moderate (4-7) Piperacillin Sod/Tazobactam (Sod 3.375 gm/ Sodium Chloride) 100 mls @ 100 mls/ hr IVPB Q6 [facility] Last Admin: 06/15/17 09:33 Dose: 100 mls/hr Potassium Chloride 20 meq/ (Dextrose/Sodium Chloride) 1,010 mls @ 100 mls/hr IV .Q10H6M [facility] Stop: 06/15/17 20:16 Last Admin: 06/15/17 06:35 Dose: Not Given Ondansetron HCl (Zofran Inj) 4 mg IVP Q4 PRN PRN Reason: Nausea/Vomiting - Labs Labs: 06/15/17 06:00 - Constitutional Appears: Non-toxic, No Acute Distress - Head Exam Head Exam: NORMAL INSPECTION - Eye Exam Eye Exam: EOMI, PERRL Additional comments: slight/mild scleral icterus - ENT Exam ENT Exam: Mucous Membranes Moist - Respiratory Exam Respiratory Exam: Clear to Ausculation Bilateral, NORMAL BREATHING PATTERN. absent: Wheezes, Respiratory Distress - Cardiovascular Exam Cardiovascular Exam: REGULAR RHYTHM, +S1, +S2 - GI/Abdominal Exam GI & Abdominal Exam: Soft, Normal Bowel Sounds. absent: Guarding, Tenderness Additional comments: incisions from lap cholecystectomy noted, clean/dry/no drainage - Extremities Exam Extremities Exam: Normal Capillary Refill. absent: Calf Tenderness - Neurological Exam Neurological Exam: Alert, Awake, Oriented x3 - Skin Skin Exam: Dry, Warm Assessment and Plan - Assessment and Plan (Free Text) Assessment: Pt is 22 yo F with PMH asthma and laparoscopic cholecystectomy on06/07/17 who was admitted after presenting to ED with 3-4 days of continuous, non-radiating epigastric pains associated with nausea and vomiting and was noted to have mild jaundice. Pt got MRCP, undergoing GI workup for other cases of elevated LFTs, ERCP . Plan: 1. Elevated liver enzymes, with epigastric abdominal pain, nausea and vomiting -Autoimmume cause vs gallstones -S/p laparascopic cholecystectomy 06/07/17 -GI consult (Dr. Sorto): - MRCP today showed slightly irregular fluid collection in gallbladder fossa; possible hematoma/seroma, cannot rule out focal bile collection. Also seen dilatation of common bile duct, questionable small filling defect in the ost distal common bile duct. There is a large cystic duct remnant which represents reported resection of gallbladder near its junction with cystic duct. Small filling defect seen in the proximal common hepatic duct which may represent small calculus. No suggestion of bile leak. -ERCP -r/o other causes like autoimmune disease (ordered ARON, mitochondrial aantibody, smooth muscle antibody) and hepatitis (hep panel) -Surgery consult (Dr. Zepeda): follow GI recs -Trend LFTs, bilirubin: f/u CMP - AST 536 on admission, 375 today -ALT 1211 on admission, 953 today -Bili 6.7 on admission, 6.6 today -Continue with empiric Zosyn -Continue hydration -Continue with pepcid 20mg Q12 -Continue Zofran 4mg Q4 -Continue pain control with dilaudid 1mg Q4 PRN 2. Urinary tract infection -Gram neg rods -Asymptomatic, as pt does not report symptoms -Covered by zosyn 3. DVT prophylaxis -SCD
--- NOTE | 2017-06-15 12:51 | MRI ---
PROCEDURE: Magnetic Resonance Cholangiopancreatography HISTORY: COMPARISON: None available. TECHNIQUE: Multiplanar, multisequence MR images of the abdomen were obtained, including heavily T2 weighted MRCP images of the biliary system. Rotating maximum intensity projection images of the biliary system were generated. FINDINGS: MRCP: The patient is status postcholecystectomy. There is dilatation of the common bile duct up to 9 mm diameter. There is questionable very small filling defect in the most distal common bile duct. This is best demonstrated on series 8, image 29 and series 3, image 25. Also series 12, image 7 may demonstrate this finding. There is a large cystic duct remnant. This corresponds to reported resection of the gallbladder near its junction with the cystic duct. There is a small filling defect seen in the proximal common hepatic duct 1 series 4, image 26 that may represent a small calculus. This is not seen on additional pulse sequences, however. There is mild intrahepatic biliary dilatation. LIVER: Normal size, contour and signal intensity. Mild intrahepatic biliary dilatation. There is a fluid collection, slightly irregular, in the gallbladder fossa, status post cholecystectomy. This measures 2.9 x 3.6 x 4.0 cm. Possible postoperative hematoma/ seroma. Cannot rule out focal bile collection. No evidence of free perihepatic fluid to suggest a continuing bile leak. No fluid in the subhepatic space or pericolic gutter. GALLBLADDER: Status post cholecystectomy. SPLEEN: Unremarkable. PANCREAS: No pancreatic ductal dilatation. No mass. ADRENALS: Unremarkable. KIDNEYS: Unremarkable. AORTA: No aneurysm. ASCITES: None. OTHER FINDINGS: None. IMPRESSION: Status post cholecystectomy. Irregular fluid collection in the gallbladder fossa, possibly postoperative hematoma/ seroma. Cannot rule out focal but collection. Mildly dilated common bile duct with mild intrahepatic biliary dilatation. Large cystic duct remnant noted. Questionable tiny filling defect in the most distal common bile duct which may represent an obstructing calculus. See above. This measures maximally 4 mm. Also questionable filling defect in the proximal common hepatic duct as described above. Again, 3-4 mm.
[2017-06-15 17:05] LABS: HEPATITIS B SURFACE AG NEGATIVE (NEGATIVE)
[2017-06-15 17:10] LABS: HEPATITIS A IGM NEGATIVE (NEGATIVE)
[2017-06-15 17:11] LABS: HEPATITIS B CORE AB NEGATIVE (NEGATIVE)
[2017-06-15 17:22] LABS: HEPATITIS C ANTIBODY NEGATIVE (NEGATIVE)
[2017-06-15] MEDS: Potassium Chl 20 mEq in D5-NS 1,000 ML IV SCH (22:42)
[2017-06-16] MEDS: Piperacillin/Tazobact 3.375 GM in Sodium Chloride 0.9% 100 ML IVPB SCH ×4 (04:40→21:32)
--- NOTE | 2017-06-16 07:02 | CP.PCM.PN ---
Subjective - Date & Time of Evaluation Date of Evaluation: 06/16/17 Time of Evaluation: 07:00 - Subjective Subjective: General Surgery Progress Note for Dr. Zepeda Patient seen and examined at bedside. No acute event overnight. Patient resting in bed comfortably. Patient states that abdominal discomfort and nausea have resolved. Denies fever/chills, cp, sob, palpitations, abd pain, n/v/d. Objective - Vital Signs/Intake and Output Vital Signs (last 24 hours): Temp Pulse Resp BP Pulse Ox 99.2 F 58 L 19 107/67 98 06/16/17 00:00 06/16/17 00:00 06/16/17 00:00 06/16/17 00:00 06/16/17 00:00 - Medications Medications: Current Medications Famotidine (Pepcid) 20 mg IVP Q12 [facility] Last Admin: 06/15/17 21:11 Dose: 20 mg Hydromorphone HCl (Dilaudid) 1 mg IVP Q4 PRN PRN Reason: Pain, moderate (4-7) Piperacillin Sod/Tazobactam (Sod 3.375 gm/ Sodium Chloride) 100 mls @ 100 mls/ hr IVPB Q6 [facility] Last Admin: 06/16/17 04:40 Dose: 100 mls/hr Potassium Chloride/Dextrose/Sod Cl (Potassium Chl 20 Meq In D5-Ns) 1,000 mls @ 100 mls/hr IV .Q10H [facility] Stop: 06/16/17 21:17 Last Admin: 06/15/17 22:42 Dose: 100 mls/hr Ondansetron HCl (Zofran Inj) 4 mg IVP Q4 PRN PRN Reason: Nausea/Vomiting - Labs Labs: 06/15/17 06:00 - Constitutional Appears: No Acute Distress, Other (jaundice) - Eye Exam Eye Exam: EOMI, Scleral icterus - ENT Exam ENT Exam: Mucous Membranes Moist - Respiratory Exam Respiratory Exam: NORMAL BREATHING PATTERN - Cardiovascular Exam Cardiovascular Exam: REGULAR RHYTHM - GI/Abdominal Exam GI & Abdominal Exam: Soft. absent: Distended, Firm, Guarding, Tenderness, Rebound Additional comments: incisions are clean, dry and intact - Extremities Exam Extremities Exam: absent: Calf Tenderness - Neurological Exam Neurological Exam: Alert, Awake, Oriented x3 - Psychiatric Exam Psychiatric exam: Normal Affect, Normal Mood - Skin Skin Exam: Dry, Intact, Warm Assessment and Plan - Assessment and Plan (Free Text) Plan: 22 F s/p laparoscopic cholecystectomy (06/07) presents with abdominal pain, jaundice and transaminitis. Rule out bile duct leak -MRCP: mild intrahepatic dilatation, possible distal cbd stone, 2.9 x 3.6 x 4.0 cm fluid collection near GB fossa -GI aware of findings, possible ERCP -NPO -IVF -zofran -pain meds -DW Dr. Duane Zaman PGY-1
--- NOTE | 2017-06-16 08:19 | CP.PCM.PN ---
Subjective - Date & Time of Evaluation Date of Evaluation: 06/16/17 Time of Evaluation: 08:05 - Subjective Subjective: Patient was seen and examined at bedside this morning, not in acute distress. Denied recurrence of any pain, nausea, vomiting. Pt had MRCP performed yesterday that showed possible stone, she is aware that GI workup is in progress regarding her liver and elevated LFTs, and of possible ERCP . Patient verbalized that she feels better and is looking forward to discharge. Denied chest pain, shortness of breath, new or recurrent abdominal pain, nausea , vomiting, diarrhea, leg/calf pain/swelling. Objective - Vital Signs/Intake and Output Vital Signs (last 24 hours): Temp Pulse Resp BP Pulse Ox 99.2 F 58 L 19 107/67 98 06/16/17 00:00 06/16/17 00:00 06/16/17 00:00 06/16/17 00:00 06/16/17 00:00 - Medications Medications: Current Medications Famotidine (Pepcid) 20 mg IVP Q12 [facility] Last Admin: 06/15/17 21:11 Dose: 20 mg Hydromorphone HCl (Dilaudid) 1 mg IVP Q4 PRN PRN Reason: Pain, moderate (4-7) Piperacillin Sod/Tazobactam (Sod 3.375 gm/ Sodium Chloride) 100 mls @ 100 mls/ hr IVPB Q6 [facility] Last Admin: 06/16/17 04:40 Dose: 100 mls/hr Potassium Chloride/Dextrose/Sod Cl (Potassium Chl 20 Meq In D5-Ns) 1,000 mls @ 100 mls/hr IV .Q10H [facility] Stop: 06/16/17 21:17 Last Admin: 06/15/17 22:42 Dose: 100 mls/hr Ondansetron HCl (Zofran Inj) 4 mg IVP Q4 PRN PRN Reason: Nausea/Vomiting - Labs Labs: 06/15/17 06:00 - Constitutional Appears: Non-toxic, No Acute Distress - Head Exam Head Exam: NORMAL INSPECTION - Eye Exam Eye Exam: EOMI - ENT Exam ENT Exam: Mucous Membranes Moist - Respiratory Exam Respiratory Exam: Clear to Ausculation Bilateral, NORMAL BREATHING PATTERN. absent: Wheezes, Respiratory Distress - Cardiovascular Exam Cardiovascular Exam: REGULAR RHYTHM, +S1, +S2 - GI/Abdominal Exam GI & Abdominal Exam: Soft, Normal Bowel Sounds - Extremities Exam Extremities Exam: absent: Calf Tenderness - Neurological Exam Neurological Exam: Alert, Awake, Oriented x3 - Psychiatric Exam Psychiatric exam: Normal Mood - Skin Skin Exam: Dry, Intact, Warm Assessment and Plan - Assessment and Plan (Free Text) Assessment: Pt is 22 yo F with PMH asthma and laparoscopic cholecystectomy on 06/07/17 who was admitted after presenting to ED with 3-4 days of continuous, non-radiating epigastric pains associated with nausea and vomiting and was noted to have mild jaundice. Pt got MRCP yesterday, is undergoing GI workup for other cases of elevated LFTs, possible ERCP . Plan: 1. Elevated liver enzymes, with epigastric abdominal pain, nausea and vomiting -Autoimmume cause vs gallstones -S/p laparascopic cholecystectomy 06/07/17 -GI consult (Dr. Sorto): - MRCP today showed slightly irregular fluid collection in gallbladder fossa; possible hematoma/seroma, cannot rule out focal bile collection. Also seen dilatation of common bile duct, questionable small filling defect in the ost distal common bile duct. There is a large cystic duct remnant which represents reported resection of gallbladder near its junction with cystic duct. Small filling defect seen in the proximal common hepatic duct which may represent small calculus. No suggestion of bile leak. -ERCP -Hepatitis panel negative (hep A IgM Ab, Hep Bs Antigen, Hep B Core IgM Ab, Hep C core Ab all neg) -r/o other causes like autoimmune disease (ordered ARON, mitochondrial aantibody, smooth muscle antibody)- awaiting results -Surgery consult (Dr. Zepeda): follow GI recs -Continue to trend LFTs - AST 536 on admission, yesterday 375, today 437 -ALT 1211 on admission, 953 yesterday, today 911 -Continue with empiric Zosyn -Continue hydration -Continue with pepcid 20mg Q12 -Continue Zofran 4mg Q4 -Continue pain control with dilaudid 1mg Q4 PRN 2. Urinary tract infection -Gram neg rods -Asymptomatic, as pt does not report symptoms -Covered by zosyn 3. Obesity -Nutrition consult 4. DVT prophylaxis -SCD
--- NOTE | 2017-06-16 08:28 | CON ---
DATE OF SERVICE: 06/15/2017 REFERRING PHYSICIAN: REASON FOR CONSULTATION: Elevated LFTs. HISTORY OF PRESENT ILLNESS: This is a 22-year-old female, who has a history of asthma, had laparoscopic cholecystectomy a week ago, had elevated LFTs at that point, now comes in with worsening elevated LFTs and some epigastric discomfort, has some nausea and vomiting. She confirms some jaundice which she has had before. The pain is actually improved. The nausea is better as well. Currently, lying in bed comfortably, in no apparent distress. PAST MEDICAL HISTORY: As above. PAST SURGICAL HISTORY: As above. MEDICATIONS: Have been reviewed. REVIEW OF SYSTEMS: All other systems have been reviewed and negative apart from the HPI. PHYSICAL EXAMINATION: GENERAL: Pleasant young female, lying in bed comfortably, in no apparent distress. VITAL SIGNS: Grossly unremarkable. HEENT: Head is normocephalic and atraumatic. Eyes, pupils equal and reactive to light bilaterally. No conjunctival icterus. No pallor. NECK: Supple. Normal range of motion. No lymphadenopathy appreciated. LUNGS: Coarse breath sounds bilaterally. HEART: S1, S2, regular rhythm, no murmurs appreciated. ABDOMEN: Soft, nontender, bowel sounds present. Some discomfort in the epigastric region. No rebound. No guarding. RECTAL: Deferred. EXTREMITIES: Pulses felt bilaterally. SKIN: Warm, dry, and intact. NEUROLOGIC: A and O x3. LABORATORY DATA: WBC 6.9, hemoglobin 13.6, total bilirubin 6.6, AST and ALT 536 and 1211, now it is 375 and , alkaline phosphatase 24, improving. MRCP is pending. Previous MRCP prior to the surgery was negative for retained stones. ASSESSMENT AND PLAN: This is a 22-year-old female with elevated liver function tests, unclear etiology. Differential obviously includes bile leak, transection of the common bile duct, retained stone, or liver disease. We will wait for MRCP negative at this time, we will order hepatitis serology. Thank you for this consult. Clifton Sorto MD/ PhD CC: [facility] # [id number]
[2017-06-16 08:35] LABS: HEMOGLOBIN 12.7 g/dL (12.0-16.0); MEAN CORPUSCULAR HEMOGLOBIN 28.3 pg (27.0-31.0); MEAN CORPUSCULAR HGB CONC 33.7 g/dL (33.0-37.0); RBC 4.5 Mil/uL (3.80-5.20); RED CELL DISTRIBUTION WIDTH 14.5 % (11.5-14.5); WHITE BLOOD COUNT 5.4 K/uL (4.8-10.8)
[2017-06-16 08:44] LABS: ALB/GLOB RATIO 1.3 (1.0-2.1); ALBUMIN 4.1 g/dL (3.5-5.0); ALT/SGPT 911 U/L (9-52); AST/SGOT 437 U/L (14-36); BLOOD UREA NITROGEN 4 mg/dl (7-17); CALCIUM 9.4 mg/dL (8.4-10.2); GFR AFRICAN-AMERICAN > 60; GFR NON-AFRICAN AMERICAN > 60
[2017-06-16] MEDS: Potassium Chl 20 mEq in D5-NS 1,000 ML IV SCH ×2 (09:14→13:33)
[2017-06-17] MEDS ORDERED: Potassium Chl 20 mEq in D5-NS 1,000 ML IV SCH (02:00)
[2017-06-17] MEDS: Piperacillin/Tazobact 3.375 GM in Sodium Chloride 0.9% 100 ML IVPB SCH ×4 (03:56→21:40)
[2017-06-17 06:14] LABS: HEMOGLOBIN 12.8 g/dL (12.0-16.0); MEAN CELL VOLUME 86.5 fl (81.0-99.0); MEAN CORPUSCULAR HEMOGLOBIN 28.3 pg (27.0-31.0); MEAN CORPUSCULAR HGB CONC 32.7 g/dL (33.0-37.0); RBC 4.52 Mil/uL (3.80-5.20); RED CELL DISTRIBUTION WIDTH 14.9 % (11.5-14.5); WHITE BLOOD COUNT 5.6 K/uL (4.8-10.8)
[2017-06-17 06:20] LABS: ALB/GLOB RATIO 1.2 (1.0-2.1); ALBUMIN 3.9 g/dL (3.5-5.0); ALT/SGPT 931 U/L (9-52); AST/SGOT 535 U/L (14-36); BLOOD UREA NITROGEN 4 mg/dl (7-17); CALCIUM 9.7 mg/dL (8.4-10.2); GFR AFRICAN-AMERICAN > 60; GFR NON-AFRICAN AMERICAN > 60
--- NOTE | 2017-06-17 08:50 | CP.PCM.PN ---
<Oli Zaman - Last Filed: 06/17/17 08:55> Subjective - Date & Time of Evaluation Date of Evaluation: 06/17/17 Time of Evaluation: 08:30 - Subjective Subjective: General Surgery Progress Note for Dr. Zepeda Patient seen and examined at bedside. No acute event overnight. Patient resting in bed comfortably. Patient is not experiencing abdominal pain or n/v. Plan for possible ERCP today. Denies fever/chills, cp, sob, palpitations. Objective - Vital Signs/Intake and Output Vital Signs (last 24 hours): Temp Pulse Resp BP Pulse Ox 99.1 F 53 L 18 107/65 98 06/17/17 08:08 06/17/17 08:08 06/17/17 08:08 06/17/17 08:08 06/17/17 08:08 - Medications Medications: Current Medications Famotidine (Pepcid) 20 mg IVP Q12 [facility] Last Admin: 06/16/17 21:31 Dose: 20 mg Hydromorphone HCl (Dilaudid) 1 mg IVP Q4 PRN PRN Reason: Pain, moderate (4-7) Piperacillin Sod/Tazobactam (Sod 3.375 gm/ Sodium Chloride) 100 mls @ 100 mls/ hr IVPB Q6 [facility] Last Admin: 06/17/17 03:56 Dose: 100 mls/hr Potassium Chloride/Dextrose/Sod Cl (Potassium Chl 20 Meq In D5-Ns) 1,000 mls @ 100 mls/hr IV .Q10H [facility] Stop: 06/18/17 01:34 Last Admin: 06/17/17 01:44 Dose: 100 mls/hr Ondansetron HCl (Zofran Inj) 4 mg IVP Q4 PRN PRN Reason: Nausea/Vomiting - Labs Labs: 06/17/17 04:35 06/17/17 04:35 - Constitutional Appears: No Acute Distress, Other (jaundice) - Head Exam Head Exam: ATRAUMATIC, NORMOCEPHALIC - Eye Exam Eye Exam: Scleral icterus - Respiratory Exam Respiratory Exam: NORMAL BREATHING PATTERN - Cardiovascular Exam Cardiovascular Exam: REGULAR RHYTHM - GI/Abdominal Exam GI & Abdominal Exam: Soft. absent: Distended, Firm, Guarding, Rigid, Tenderness , Rebound - Extremities Exam Extremities Exam: absent: Calf Tenderness - Neurological Exam Neurological Exam: Alert, Awake, Oriented x3 - Psychiatric Exam Psychiatric exam: Normal Affect, Normal Mood - Skin Skin Exam: Dry, Intact, Warm Assessment and Plan - Assessment and Plan (Free Text) Plan: 22 F s/p laparoscopic cholecystectomy (06/07) presents with abdominal pain, jaundice and transaminitis. Rule out bile duct leak -MRCP: mild intrahepatic dilatation, possible distal cbd stone, 2.9 x 3.6 x 4.0 cm fluid collection near GB fossa -ERCP Today -NPO for procedure -DW Dr. Duane Zaman PGY-1 <James Ayala - Last Filed: 06/17/17 13:33> Subjective - Date & Time of Evaluation Time of Evaluation: 13:25 - Subjective Subjective: Patient was seen and examined at the bedside. Agree with resident's note above Objective - Vital Signs/Intake and Output Vital Signs (last 24 hours): Temp Pulse Resp BP Pulse Ox 99.1 F 53 L 18 107/65 98 06/17/17 08:08 06/17/17 08:08 06/17/17 08:08 06/17/17 08:08 06/17/17 08:08 - Medications Medications: Current Medications Famotidine (Pepcid) 20 mg IVP Q12 [facility] Last Admin: 06/17/17 09:10 Dose: 20 mg Hydromorphone HCl (Dilaudid) 1 mg IVP Q4 PRN PRN Reason: Pain, moderate (4-7) Piperacillin Sod/Tazobactam (Sod 3.375 gm/ Sodium Chloride) 100 mls @ 100 mls/ hr IVPB Q6 [facility] Last Admin: 06/17/17 09:07 Dose: 100 mls/hr Potassium Chloride/Dextrose/Sod Cl (Potassium Chl 20 Meq In D5-Ns) 1,000 mls @ 100 mls/hr IV .Q10H [facility] Stop: 06/18/17 01:34 Last Admin: 06/17/17 01:44 Dose: 100 mls/hr Indomethacin (Indocin Suppository) 100 mg [place] ONCE ONE Stop: 06/18/17 11:01 Ondansetron HCl (Zofran Inj) 4 mg IVP Q4 PRN PRN Reason: Nausea/Vomiting - Labs Labs: 06/17/17 04:35 06/17/17 04:35 Assessment and Plan - Assessment and Plan (Free Text) Plan: - For ERCP by GI tomorrow - NPO after midnight - Monitor LFTs - Will follow
--- NOTE | 2017-06-17 10:34 | CP.PCM.PN ---
Subjective - Date & Time of Evaluation Date of Evaluation: 06/17/17 Time of Evaluation: 10:30 - Subjective Subjective: no pain Objective - Vital Signs/Intake and Output Vital Signs (last 24 hours): Temp Pulse Resp BP Pulse Ox 99.1 F 53 L 18 107/65 98 06/17/17 08:08 06/17/17 08:08 06/17/17 08:08 06/17/17 08:08 06/17/17 08:08 - Medications Medications: Current Medications Famotidine (Pepcid) 20 mg IVP Q12 [facility] Last Admin: 06/17/17 09:10 Dose: 20 mg Hydromorphone HCl (Dilaudid) 1 mg IVP Q4 PRN PRN Reason: Pain, moderate (4-7) Piperacillin Sod/Tazobactam (Sod 3.375 gm/ Sodium Chloride) 100 mls @ 100 mls/ hr IVPB Q6 [facility] Last Admin: 06/17/17 09:07 Dose: 100 mls/hr Potassium Chloride/Dextrose/Sod Cl (Potassium Chl 20 Meq In D5-Ns) 1,000 mls @ 100 mls/hr IV .Q10H [facility] Stop: 06/18/17 01:34 Last Admin: 06/17/17 01:44 Dose: 100 mls/hr Indomethacin (Indocin Suppository) 100 mg [place] ONCE ONE Stop: 06/18/17 11:01 Ondansetron HCl (Zofran Inj) 4 mg IVP Q4 PRN PRN Reason: Nausea/Vomiting - Labs Labs: 06/17/17 04:35 06/17/17 04:35 - Eye Exam Eye Exam: Scleral icterus - GI/Abdominal Exam GI & Abdominal Exam: Soft, Normal Bowel Sounds Assessment and Plan - Assessment and Plan (Free Text) Assessment: 22 yo female with jaundice ercp in am orders in
--- NOTE | 2017-06-17 10:45 | CP.PCM.PN ---
<Anuja Hernandez - Last Filed: 06/17/17 15:22> Subjective - Date & Time of Evaluation Date of Evaluation: 06/17/17 Time of Evaluation: 10:30 - Subjective Subjective: Patient was seen and examined at bedside, was sitting comfortably in the chair this morning. Reports no recurrence of pain, no discomfort, was able to have a BM this morning. She had some concerns regarding the yellowing of her eyes, and it was explained that this is likely due to the possible stone or other liver related etiology. Pt is aware that she is to have ERCP in the am. Denies shortness of breath, chest pain, abdominal pain, nausea, vomiting, leg/calf pain /swelling. Objective - Vital Signs/Intake and Output Vital Signs (last 24 hours): Temp Pulse Resp BP Pulse Ox 99.1 F 53 L 18 107/65 98 06/17/17 08:08 06/17/17 08:08 06/17/17 08:08 06/17/17 08:08 06/17/17 08:08 - Medications Medications: Current Medications Famotidine (Pepcid) 20 mg IVP Q12 [facility] Last Admin: 06/17/17 09:10 Dose: 20 mg Hydromorphone HCl (Dilaudid) 1 mg IVP Q4 PRN PRN Reason: Pain, moderate (4-7) Piperacillin Sod/Tazobactam (Sod 3.375 gm/ Sodium Chloride) 100 mls @ 100 mls/ hr IVPB Q6 [facility] Last Admin: 06/17/17 09:07 Dose: 100 mls/hr Potassium Chloride/Dextrose/Sod Cl (Potassium Chl 20 Meq In D5-Ns) 1,000 mls @ 100 mls/hr IV .Q10H [facility] Stop: 06/18/17 01:34 Last Admin: 06/17/17 01:44 Dose: 100 mls/hr Indomethacin (Indocin Suppository) 100 mg [place] ONCE ONE Stop: 06/18/17 11:01 Ondansetron HCl (Zofran Inj) 4 mg IVP Q4 PRN PRN Reason: Nausea/Vomiting - Labs Labs: 06/17/17 04:35 06/17/17 04:35 - Constitutional Appears: Well, Non-toxic, No Acute Distress - Head Exam Head Exam: NORMAL INSPECTION - Eye Exam Eye Exam: EOMI Additional comments: mild scleral icterus - ENT Exam ENT Exam: Mucous Membranes Moist - Respiratory Exam Respiratory Exam: Clear to Ausculation Bilateral, NORMAL BREATHING PATTERN. absent: Wheezes, Respiratory Distress - Cardiovascular Exam Cardiovascular Exam: REGULAR RHYTHM, +S1, +S2 - GI/Abdominal Exam GI & Abdominal Exam: Soft, Normal Bowel Sounds - Neurological Exam Neurological Exam: Alert, Awake, CN II-XII Intact, Oriented x3 - Psychiatric Exam Psychiatric exam: Normal Mood - Skin Skin Exam: Dry, Warm Assessment and Plan - Assessment and Plan (Free Text) Assessment: Pt is 22 yo F with PMH asthma and laparoscopic cholecystectomy on 06/07/17 who was admitted after presenting to ED with 3-4 days of continuous, non-radiating epigastric pains associated with nausea and vomiting and was noted to have mild jaundice. LFTs have remained elevated after trending down, bilirubin remains elevated, and patient has some scleral icterus. Pt got MRCP which showed fluid collection and possible stone, ERCP tomorrow in the am. Plan: 1. Elevated liver enzymes, with epigastric abdominal pain, nausea and vomiting, likely choledocholethiasis -Pain, nausea, vomiting have resolved -S/p laparascopic cholecystectomy 06/07/17 -GI consult (Dr. Sorto): - MRCP showed fluid collection in gallbladder fossa; Also seen dilatation of common bile duct. Large cystic duct remnant which represents reported resection of gallbladder near its junction with cystic duct. Small filling defect seen in the proximal common hepatic duct which may represent small calculus. No suggestion of bile leak. -ERCP tomorrow morning -Hepatitis panel negative (hep A IgM Ab, Hep Bs Antigen, Hep B Core IgM Ab, Hep C core Ab all neg) -Mitochondrial ab negative, smooth muscle ab negative - does not suggest autoimmune cause of elevated LFTs -Surgery consult (Dr. Zepeda): follow GI recs -Continue to trend LFTs, bilirubin - AST 536 on admission (06/04), 375 (06/15), 437 (06/16), today 535 -ALT 1211 on admission (06/04), 953 (06/15), 911 (06/16), today 931 -Bilirubin remains elevated as on admission; has ranged from 6.7 to 6.9 today -Continue with empiric Zosyn -Continue hydration -Continue with pepcid 20mg Q12 -Continue Zofran 4mg Q4 -Continue pain control with dilaudid 1mg Q4 PRN -NPO for ERCP tomorrow 2. Urinary tract infection -E. coli -Asymptomatic, as pt does not report symptoms -Covered by zosyn 3. Obesity -Nutrition consult 4. DVT prophylaxis -[facility] <Janina Galeana - Last Filed: 06/17/17 16:01> Objective - Vital Signs/Intake and Output Vital Signs (last 24 hours): Temp Pulse Resp BP Pulse Ox 97.5 F L 66 17 108/68 99 06/17/17 15:52 06/17/17 15:52 06/17/17 15:52 06/17/17 15:52 06/17/17 15:52 - Medications Medications: Current Medications Famotidine (Pepcid) 20 mg IVP Q12 [facility] Last Admin: 06/17/17 09:10 Dose: 20 mg Hydromorphone HCl (Dilaudid) 1 mg IVP Q4 PRN PRN Reason: Pain, moderate (4-7) Piperacillin Sod/Tazobactam (Sod 3.375 gm/ Sodium Chloride) 100 mls @ 100 mls/ hr IVPB Q6 [facility] Last Admin: 06/17/17 09:07 Dose: 100 mls/hr Potassium Chloride/Dextrose/Sod Cl (Potassium Chl 20 Meq In D5-Ns) 1,000 mls @ 100 mls/hr IV .Q10H [facility] Stop: 06/18/17 01:34 Last Admin: 06/17/17 01:44 Dose: 100 mls/hr Indomethacin (Indocin Suppository) 100 mg [place] ONCE ONE Stop: 06/18/17 11:01 Ondansetron HCl (Zofran Inj) 4 mg IVP Q4 PRN PRN Reason: Nausea/Vomiting - Labs Labs: 06/17/17 04:35 06/17/17 04:35 Attending/Attestation - Attestation I have personally seen and examined this patient.: Yes I have fully participated in the care of the patient.: Yes I have reviewed all pertinent clinical information, including history, physical exam and plan: Yes Notes (Text): Choledocholithiasis, s/p recent Lap [facility] -persistent LFT elevation - MRCP showed CBD dilatation and filing defect - plan fo ERCP in am - discussed case with Dr Sorto UTI,E coli - pt on Zosyn Morbid Obesity BMI 42.1
--- NOTE | 2017-06-17 11:07 | CP.PCM.PN ---
Objective - Vital Signs/Intake and Output Vital Signs (last 24 hours): Temp Pulse Resp BP Pulse Ox 99.1 F 53 L 18 107/65 98 06/17/17 08:08 06/17/17 08:08 06/17/17 08:08 06/17/17 08:08 06/17/17 08:08 - Medications Medications: Current Medications Famotidine (Pepcid) 20 mg IVP Q12 [facility] Last Admin: 06/17/17 09:10 Dose: 20 mg Hydromorphone HCl (Dilaudid) 1 mg IVP Q4 PRN PRN Reason: Pain, moderate (4-7) Piperacillin Sod/Tazobactam (Sod 3.375 gm/ Sodium Chloride) 100 mls @ 100 mls/ hr IVPB Q6 [facility] Last Admin: 06/17/17 09:07 Dose: 100 mls/hr Potassium Chloride/Dextrose/Sod Cl (Potassium Chl 20 Meq In D5-Ns) 1,000 mls @ 100 mls/hr IV .Q10H [facility] Stop: 06/18/17 01:34 Last Admin: 06/17/17 01:44 Dose: 100 mls/hr Indomethacin (Indocin Suppository) 100 mg [place] ONCE ONE Stop: 06/18/17 11:01 Ondansetron HCl (Zofran Inj) 4 mg IVP Q4 PRN PRN Reason: Nausea/Vomiting - Labs Labs: 06/17/17 04:35 06/17/17 04:35
[2017-06-18] MEDS: Potassium Chl 20 mEq in D5-NS 1,000 ML IV SCH ×2 (00:58→16:49)
[2017-06-18] MEDS: Piperacillin/Tazobact 3.375 GM in Sodium Chloride 0.9% 100 ML IVPB SCH ×3 (05:38→16:50)
[2017-06-18 06:41] LABS: ALB/GLOB RATIO 1.1 (1.0-2.1); ALT/SGPT 983 U/L (9-52); AST/SGOT 525 U/L (14-36); BLOOD UREA NITROGEN 4 mg/dl (7-17); CALCIUM 9.4 mg/dL (8.4-10.2); GFR AFRICAN-AMERICAN > 60; GFR NON-AFRICAN AMERICAN > 60
[2017-06-18 06:57] LABS: INR 1.2 (0.9-1.2); PARTIAL THROMBOPLASTIN TIME 32.6 Seconds (25.6-37.1); PROTHROMBIN TIME 11.9 Seconds (9.8-13.1)
--- NOTE | 2017-06-18 07:12 | CP.PCM.PN ---
<Oli Zaman - Last Filed: 06/18/17 08:07> Subjective - Date & Time of Evaluation Date of Evaluation: 06/18/17 Time of Evaluation: 07:00 - Subjective Subjective: General Surgery Progress Note for Dr. Zepeda Patient seen and examined at bedside. No acute event overnight. Patient resting in bed comfortably. Patient does not have any abdominal pain or n/v. ERCP was rescheduled for today. Denies fever/chills, cp, sob, palpitations. Objective - Vital Signs/Intake and Output Vital Signs (last 24 hours): Temp Pulse Resp BP Pulse Ox 97.9 F 60 18 98/65 L 98 06/18/17 00:45 06/18/17 00:45 06/18/17 00:45 06/18/17 00:45 06/18/17 00:45 - Medications Medications: Current Medications Famotidine (Pepcid) 20 mg IVP Q12 [facility] Last Admin: 06/17/17 20:55 Dose: 20 mg Piperacillin Sod/Tazobactam (Sod 3.375 gm/ Sodium Chloride) 100 mls @ 100 mls/ hr IVPB Q6 [facility] Last Admin: 06/18/17 05:38 Dose: 100 mls/hr Potassium Chloride/Dextrose/Sod Cl (Potassium Chl 20 Meq In D5-Ns) 1,000 mls @ 100 mls/hr IV .Q10H [facility] Stop: 06/18/17 22:43 Last Admin: 06/18/17 00:58 Dose: 100 mls/hr Indomethacin (Indocin Suppository) 100 mg [place] ONCE ONE Stop: 06/18/17 11:01 Ondansetron HCl (Zofran Inj) 4 mg IVP Q4 PRN PRN Reason: Nausea/Vomiting - Labs Labs: 06/17/17 04:35 06/18/17 05:30 PT 11.9 Seconds (9.8-13.1) 06/18/17 05:30 INR 1.2 (0.9-1.2) 06/18/17 05:30 APTT 32.6 Seconds (25.6-37.1) 06/18/17 05:30 - Constitutional Appears: No Acute Distress - Head Exam Head Exam: ATRAUMATIC, NORMOCEPHALIC - Eye Exam Eye Exam: EOMI, Scleral icterus - ENT Exam ENT Exam: Mucous Membranes Moist - Respiratory Exam Respiratory Exam: NORMAL BREATHING PATTERN - Cardiovascular Exam Cardiovascular Exam: REGULAR RHYTHM - GI/Abdominal Exam GI & Abdominal Exam: Soft. absent: Distended, Firm, Guarding, Rigid, Tenderness , Rebound - Extremities Exam Extremities Exam: absent: Calf Tenderness - Neurological Exam Neurological Exam: Alert, Awake, Oriented x3 - Psychiatric Exam Psychiatric exam: Normal Affect, Normal Mood - Skin Skin Exam: Dry, Intact, Warm Assessment and Plan - Assessment and Plan (Free Text) Plan: 22 F s/p laparoscopic cholecystectomy (06/07) presents with abdominal pain, jaundice and transaminitis. Rule out bile duct leak -MRCP: mild intrahepatic dilatation, possible distal cbd stone, 2.9 x 3.6 x 4.0 cm fluid collection near GB fossa -ERCP rescheduled for Today -NPO for procedure -Will DW Dr. Duane Zaman PGY-1 <James Ayala - Last Filed: 06/18/17 10:36> Subjective - Date & Time of Evaluation Time of Evaluation: 09:30 - Subjective Subjective: Patient was seen and examined at the bedside. Agree with resident's note above. Objective - Vital Signs/Intake and Output Vital Signs (last 24 hours): Temp Pulse Resp BP Pulse Ox 97.8 F 65 20 137/83 96 06/18/17 08:11 06/18/17 08:11 06/18/17 08:11 06/18/17 08:11 06/18/17 08:11 - Medications Medications: Current Medications Famotidine (Pepcid) 20 mg IVP Q12 [facility] Last Admin: 06/18/17 09:13 Dose: 20 mg Piperacillin Sod/Tazobactam (Sod 3.375 gm/ Sodium Chloride) 100 mls @ 100 mls/ hr IVPB Q6 [facility] Last Admin: 06/18/17 09:12 Dose: 100 mls/hr Potassium Chloride/Dextrose/Sod Cl (Potassium Chl 20 Meq In D5-Ns) 1,000 mls @ 100 mls/hr IV .Q10H [facility] Stop: 06/18/17 22:43 Last Admin: 06/18/17 00:58 Dose: 100 mls/hr Indomethacin (Indocin Suppository) 100 mg [place] ONCE ONE Stop: 06/18/17 11:01 Ondansetron HCl (Zofran Inj) 4 mg IVP Q4 PRN PRN Reason: Nausea/Vomiting - Labs Labs: 06/17/17 04:35 06/18/17 05:30 PT 11.9 Seconds (9.8-13.1) 06/18/17 05:30 INR 1.2 (0.9-1.2) 06/18/17 05:30 APTT 32.6 Seconds (25.6-37.1) 06/18/17 05:30 Assessment and Plan - Assessment and Plan (Free Text) Plan: - Continue antibiotics
[2017-06-18] MEDS ORDERED: Iohexol 240 (50 ml) ONE (08:26)
[2017-06-18] MEDS ORDERED: Glucagon Recombinant 1 mg Inj ONE (08:26)
[2017-06-18] MEDS ORDERED: Midazolam 2 MG/2 ML VIAL ONE (08:54)
[2017-06-18] MEDS ORDERED: Succinylcholine 200 mg/10 ml Inj IV ONE (08:55)
[2017-06-18] MEDS ORDERED: Propofol 10 mg/ml Inj (20 ML) ONE (08:55)
--- NOTE | 2017-06-18 09:08 | CP.PCM.PN ---
<Anuja Hernandez - Last Filed: 06/18/17 15:21> Subjective - Date & Time of Evaluation Date of Evaluation: 06/18/17 Time of Evaluation: 07:50 - Subjective Subjective: As of 7:50 am: Patient was seen and examined at bedside. She appeared comfortable, was not in distress and was sketching in a notebook. She denied any events overnight, denied recurrence of pain, and commented on how she feels like the yellow tinge to her skin is improving. She is aware that she is to have ERCP today and is awaiting the procedure. Denied chest pain, shortness of breath, recurrence of epigastric or other abdominal pain, nausea, vomiting, issues toileting, leg/calf pain/swelling. As of 1:30 pm, pt was seen again. ECRP was performed and one stone was removed, spinchterotomy was also performed. Patient tolerated the procedure well, returned to room and was awake and alert, stated that she was thirsty. As of 3:15 pm, pt tolerated liquid diet without difficulty, no pain, no vomiting or nausea. Objective - Vital Signs/Intake and Output Vital Signs (last 24 hours): Temp Pulse Resp BP Pulse Ox 97.8 F 65 20 137/83 96 06/18/17 08:11 06/18/17 08:11 06/18/17 08:11 06/18/17 08:11 06/18/17 08:11 - Medications Medications: Current Medications Famotidine (Pepcid) 20 mg IVP Q12 [facility] Last Admin: 06/17/17 20:55 Dose: 20 mg Piperacillin Sod/Tazobactam (Sod 3.375 gm/ Sodium Chloride) 100 mls @ 100 mls/ hr IVPB Q6 [facility] Last Admin: 06/18/17 05:38 Dose: 100 mls/hr Potassium Chloride/Dextrose/Sod Cl (Potassium Chl 20 Meq In D5-Ns) 1,000 mls @ 100 mls/hr IV .Q10H [facility] Stop: 06/18/17 22:43 Last Admin: 06/18/17 00:58 Dose: 100 mls/hr Indomethacin (Indocin Suppository) 100 mg [place] ONCE ONE Stop: 06/18/17 11:01 Ondansetron HCl (Zofran Inj) 4 mg IVP Q4 PRN PRN Reason: Nausea/Vomiting - Labs Labs: 06/17/17 04:35 06/18/17 05:30 PT 11.9 Seconds (9.8-13.1) 06/18/17 05:30 INR 1.2 (0.9-1.2) 06/18/17 05:30 APTT 32.6 Seconds (25.6-37.1) 06/18/17 05:30 - Constitutional Appears: Non-toxic - Head Exam Head Exam: ATRAUMATIC, NORMAL INSPECTION - Eye Exam Eye Exam: EOMI, PERRL Additional comments: mild scleral icterus, no change since previous day - ENT Exam ENT Exam: Mucous Membranes Moist - Respiratory Exam Respiratory Exam: Clear to Ausculation Bilateral, NORMAL BREATHING PATTERN - Cardiovascular Exam Cardiovascular Exam: REGULAR RHYTHM, +S1, +S2 - GI/Abdominal Exam GI & Abdominal Exam: Soft, Normal Bowel Sounds - Extremities Exam Extremities Exam: absent: Calf Tenderness - Neurological Exam Neurological Exam: Alert, Awake, Oriented x3 - Psychiatric Exam Psychiatric exam: Normal Mood - Skin Skin Exam: Dry, Intact, Warm Assessment and Plan - Assessment and Plan (Free Text) Assessment: Pt is 22 yo F with PMH asthma and laparoscopic cholecystectomy on 06/07/17 who was admitted after presenting to ED with 3-4 days of continuous, non-radiating epigastric pains associated with nausea and vomiting and was noted to have mild jaundice. LFTs have remained elevated after trending down, bilirubin remains elevated, and patient has some scleral icterus. Pt got MRCP which showed fluid collection and possible stone, ERCP was scheduled for and was performed today. Plan: 1. Elevated liver enzymes, with epigastric abdominal pain, nausea and vomiting, likely choledocholethiasis -Pain, nausea, vomiting have resolved -S/p laparascopic cholecystectomy 06/07/17 -GI consult (Dr. Sorto): - MRCP showed fluid collection in gallbladder fossa; Also seen dilatation of common bile duct. Large cystic duct remnant which represents reported resection of gallbladder near its junction with cystic duct. Small filling defect seen in the proximal common hepatic duct which may represent small calculus. No suggestion of bile leak. -ERCP today- one stone was found and removed, biliary sphincterotomy was performed, and biliary tree was swept. -Hepatitis panel negative (hep A IgM Ab, Hep Bs Antigen, Hep B Core IgM Ab, Hep C core Ab all neg) -Mitochondrial ab negative, smooth muscle ab negative - does not suggest autoimmune cause of elevated LFTs -Surgery consult (Dr. Zepeda): follow GI recs -Continue to trend LFTs, bilirubin - AST 536 on admission (06/04), 375 (8/1), 437 (8/2), 535 (8/3), 525 today -ALT 1211 on admission (06/04), 953 (8/), 911 (8/2), 931 (8/3), 983 today -Bilirubin remains elevated as on admission; has ranged from 6.7 to 6.9 yesterday, 6.2 today -Continue with empiric Zosyn -Continue hydration -Continue with pepcid 20mg Q12 -Continue Zofran 4mg Q4 -Continue pain control 2. Urinary tract infection -E. coli -Asymptomatic, as pt does not report symptoms -Covered by zosyn 3. Obesity -BMI 42.1 -Nutrition consult 4. DVT prophylaxis -[facility] <Janina Galeana - Last Filed: 06/18/17 16:01> Objective - Vital Signs/Intake and Output Vital Signs (last 24 hours): Temp Pulse Resp BP Pulse Ox 97.6 F 68 17 113/80 99 06/18/17 13:01 06/18/17 13:01 06/18/17 13:01 06/18/17 13:01 06/18/17 13:01 Intake and Output: 06/18/17 06/18/17 06:59 18:59 Intake Total 1000 Balance 1000 - Medications Medications: Current Medications Famotidine (Pepcid) 20 mg IVP Q12 [facility] Last Admin: 06/18/17 09:13 Dose: 20 mg Piperacillin Sod/Tazobactam (Sod 3.375 gm/ Sodium Chloride) 100 mls @ 100 mls/ hr IVPB Q6 [facility] Last Admin: 06/18/17 09:12 Dose: 100 mls/hr Potassium Chloride/Dextrose/Sod Cl (Potassium Chl 20 Meq In D5-Ns) 1,000 mls @ 100 mls/hr IV .Q10H [facility] Stop: 06/18/17 22:43 Last Admin: 06/18/17 00:58 Dose: 100 mls/hr Ondansetron HCl (Zofran Inj) 4 mg IVP Q4 PRN PRN Reason: Nausea/Vomiting - Labs Labs: 06/17/17 04:35 06/18/17 05:30 PT 11.9 Seconds (9.8-13.1) 06/18/17 05:30 INR 1.2 (0.9-1.2) 06/18/17 05:30 APTT 32.6 Seconds (25.6-37.1) 06/18/17 05:30 Attending/Attestation - Attestation I have personally seen and examined this patient.: Yes I have fully participated in the care of the patient.: Yes I have reviewed all pertinent clinical information, including history, physical exam and plan: Yes
[2017-06-18] MEDS ORDERED: Indomethacin 50 MG Suppository PR ONE ×2 (11:00→11:22)
[2017-06-18] MEDS ORDERED: Lactated Ringer's 500 ML IV ONE ×2 (11:14→12:30)
[2017-06-18 11:29] VITALS: BMI 42.0
[2017-06-18] MEDS ORDERED: Atropine 0.4 mg/ml Inj (1 mL) ONE (12:26)
[2017-06-18 13:12] VITALS: RESP 17
--- NOTE | 2017-06-18 13:35 | RAD ---
PROCEDURE: ERCP HISTORY: cbd stones COMPARISON: None TECHNIQUE: Standard protocol for this study/examination. FINDINGS: Submitted images from the current procedure: 12.0 IMPRESSION: Total fluoroscopic time (continuous mode) utilized during the procedure: 100.0 seconds. This
--- NOTE | 2017-06-18 15:36 | CP.PCM.DIS ---
Provider - Provider Date of Admission: 06/14/17 19:48 Attending physician: Claudio Hamilton Primary care physician: Dr. Fitzgerald in [place] Consults: GI Surgery Time Spent in preparation of Discharge (in minutes): 30 Diagnosis - Discharge Diagnosis (1) Choledocholithiasis Status: Resolved (2) Obesity Status: Chronic (3) Urinary tract infection Status: Acute Hospital Course - Lab Results Lab Results: Most Recent Lab Values WBC 5.6 K/uL (4.8-10.8) 06/17/17 04:35 RBC 4.52 Mil/uL (3.80-5.20) 06/17/17 04:35 Hgb 12.8 g/dL (12.0-16.0) 06/17/17 04:35 Hct 39.1 % (34.0-47.0) 06/17/17 04:35 MCV 86.5 fl (81.0-99.0) D 06/17/17 04:35 MCH 28.3 pg (27.0-31.0) 06/17/17 04:35 MCHC 32.7 g/dL (33.0-37.0) L 06/17/17 04:35 RDW 14.9 % (11.5-14.5) H 06/17/17 04:35 Plt Count 323 K/uL (130-400) 06/17/17 04:35 MPV 9.4 fl (7.2-11.7) 06/14/17 16:23 Neut % (Auto) 73.2 % (50.0-75.0) 06/14/17 16:23 Lymph % (Auto) 14.0 % (20.0-40.0) L 06/14/17 16:23 Whitfield % (Auto) 9.8 % (0.0-10.0) 06/14/17 16:23 Eos % (Auto) 2.0 % (0.0-4.0) 06/14/17 16:23 Baso % (Auto) 1.0 % (0.0-2.0) 06/14/17 16:23 Neut # 5.0 K/uL (1.8-7.0) 06/14/17 16:23 Lymph # 1.0 K/uL (1.0-4.3) 06/14/17 16:23 Whitfield # 0.7 K/uL (0.0-0.8) 06/14/17 16:23 Eos # 0.1 K/uL (0.0-0.7) 06/14/17 16:23 Baso # 0.1 K/uL (0.0-0.2) 06/14/17 16:23 PT 11.9 Seconds (9.8-13.1) 06/18/17 05:30 INR 1.2 (0.9-1.2) 06/18/17 05:30 APTT 32.6 Seconds (25.6-37.1) 06/18/17 05:30 pO2 45 mm/Hg (30-55) 06/14/17 16:20 VBG pH 7.40 (7.32-7.43) 06/14/17 16:20 VBG pCO2 42 mmHg (40-60) 06/14/17 16:20 VBG HCO3 25.3 mmol/L 06/14/17 16:20 VBG Total CO2 27.3 mmol/L (22-28) 06/14/17 16:20 VBG O2 Sat (Calc) 86.7 % (40-65) H 06/14/17 16:20 VBG Base Excess 1.0 mmol/L (0.0-2.0) 06/14/17 16:20 VBG Potassium 3.5 mmol/L (3.6-5.2) L 06/14/17 16:20 Sodium 136.0 mmol/L (132-148) 06/14/17 16:20 Chloride 105.0 mmol/L (98-107) 06/14/17 16:20 Glucose 101 mg/dL (65-105) 06/14/17 16:20 Lactate 0.9 mmol/L (0.7-2.1) 06/14/17 16:20 FiO2 21.0 % 06/14/17 16:20 Sodium 142 mmol/l (132-148) 06/18/17 05:30 Potassium 3.9 MMOL/L (3.6-5.0) 06/18/17 05:30 Chloride 107 mmol/L (98-107) 06/18/17 05:30 Carbon Dioxide 22 mmol/L (22-30) 06/18/17 05:30 Anion Gap 16 (10-20) 06/18/17 05:30 BUN 4 mg/dl (7-17) L 06/18/17 05:30 Creatinine 1.0 mg/dL (0.7-1.2) 06/18/17 05:30 Est GFR ( Amer) > 60 06/18/17 05:30 Est GFR (Non-Af Amer) > 60 06/18/17 05:30 Random Glucose 93 mg/dL (65-105) 06/18/17 05:30 Calcium 9.4 mg/dL (8.4-10.2) 06/18/17 05:30 Total Bilirubin 6.2 mg/dl (0.2-1.3) H 06/18/17 05:30 Direct Bilirubin 4.5 mg/ml (0.0-0.4) H 06/15/17 06:00 AST 525 U/L (14-36) H 06/18/17 05:30 ALT 983 U/L (9-52) H 06/18/17 05:30 Alkaline Phosphatase 209 U/L (38-126) H 06/18/17 05:30 Total Protein 7.6 G/DL (6.3-8.2) 06/18/17 05:30 Albumin 4.0 g/dL (3.5-5.0) 06/18/17 05:30 Globulin 3.6 gm/dL (2.2-3.9) 06/18/17 05:30 Albumin/Globulin Ratio 1.1 (1.0-2.1) 06/18/17 05:30 Lipase 74 U/L (23-300) 06/14/17 16:23 Venous Blood Potassium 3.5 mmol/L (3.6-5.2) L 06/14/17 16:20 Urine Color Stormy (YELLOW) 06/14/17 16:09 Urine Clarity Cloudy (Clear) 06/14/17 16:09 Urine pH 6.0 (5.0-8.0) 06/14/17 16:09 Ur Specific Lacey 1.019 (1.003-1.030) 06/14/17 16:09 Urine Protein 30 mg/dL (NEGATIVE) 06/14/17 16:09 Urine Glucose (UA) Neg mg/dL (Normal) 06/14/17 16:09 Urine Ketones Negative mg/dL (NEGATIVE) 06/14/17 16:09 Urine Blood Large (NEGATIVE) 06/14/17 16:09 Urine Nitrate Negative (NEGATIVE) 06/14/17 16:09 Urine Bilirubin Moderate (NEGATIVE) 06/14/17 16:09 Urine Urobilinogen 4.0 mg/dL (0.2-1.0) H 06/14/17 16:09 Ur Leukocyte Esterase Neg Harlan/uL (Negative) 06/14/17 16:09 Urine RBC (Auto) 809 /hpf (0-3) H 06/14/17 16:09 Urine Microscopic WBC 14 /hpf (0-5) H 06/14/17 16:09 Ur Squamous Epith Cells 12 /hpf (0-5) H 06/14/17 16:09 Urine Bacteria Occ (<OCC) H 06/14/17 16:09 ARON Screen Positive (Negative) H 06/15/17 06:00 ARON Titer 1:160 Titer (<1:40) H 06/15/17 06:00 ARON Titer 2 TEST NOT PERFORMED 06/15/17 06:00 ARON Pattern Speckled H 06/15/17 06:00 ARON Pattern 2 TEST NOT PERFORMED 06/15/17 06:00 Anti-Mitochondrial Ab Negative (Negative) 06/15/17 06:00 Smooth Muscle Ab Titer TEST NOT PERFORMED 06/15/17 06:00 Anti-Smooth Muscle Ab Negative (Negative) 06/15/17 06:00 Hepatitis A IgM Ab Negative (NEGATIVE) 06/15/17 06:00 Hep Bs Antigen Negative (NEGATIVE) 06/15/17 06:00 Hep B Core IgM Ab Negative (NEGATIVE) 06/15/17 06:00 Hepatitis C Antibody Negative (NEGATIVE) 06/15/17 06:00 - Hospital Course Hospital Course: Pt is a 22 yo F who was admitted to the hospital 7 days after a laparascopic cholecystectomy due to epigastric pain, nausea, vomiting, and inability to keep down solids or liquids. Patient's vitals were stable in the ED, and remained stable throughout the hospital stay. Patient was found to have elevated LFTs and bilirubin on admission. GI and general surgery consults were placed; she was made NPO. She was started on zosyn, zofran, pepcid, and dilaudid prn for pain control, as well as SCDs for DVT prophylaxis. Patient was also found to have a UTI, treatment for which was covered by zosyn. On the day after admission , patient's pain, nausea and vomiting had resolved and LFTs decreased, but remained persistently elevated above normal for the remainder of the stay. Patient had MRCP performed, which suggested that there was a stone in the biliary tree. ERCP was performed, and one stone 6mm in diameter was found in a nondilated duct; the stone was removed, the biliary tree was swept, and a biliary sphincterotomy was performed. Patient tolerated the procedure well, remained stable, and was able to tolerate liquids and jello afterwards without nausea, vomiting or pain. She was in no distress, and was ambulating comfortably before and after ERCP and throughout stay in hospital. Patient sent home with prescription for Cipro 500mg BID for 3 days for UTI, and was advised to see GI Dr. Sorto for f/u and trend LFTs in 1 week, was advised to see PMD within 1 week as well. - Date & Time of H&P Date of H&P: 06/14/17 Time of H&P: 19:44 Discharge Exam - Head Exam Head Exam: ATRAUMATIC, NORMAL INSPECTION - Eye Exam Eye Exam: EOMI, Normal appearance - ENT Exam ENT Exam: Mucous Membranes Moist - Respiratory Exam Respiratory Exam: Clear to PA & Lateral, NORMAL BREATHING PATTERN, UNREMARKABLE - Cardiovascular Exam Cardiovascular Exam: REGULAR RHYTHM, +S1, +S2 - GI/Abdominal Exam GI & Abdominal Exam: Normal Bowel Sounds, Unremarkable - Extremities Exam Extremities exam: full ROM, normal capillary refill, normal inspection - Neurological Exam Neurological exam: Alert, CN II-XII Intact, Normal Gait, Oriented x3 - Psychiatric Exam Psychiatric exam: Normal Affect, Normal Mood - Skin Skin Exam: Dry, Warm Discharge Plan - Discharge Medications Prescriptions: Ciprofloxacin [Cipro] 500 mg PO BID #6 tab - Follow Up Plan Condition: FAIR Disposition: HOME/ ROUTINE Patient education suggested?: Yes Instructions: ERCP (Endoscopic Retrograde Cholangiopancreatography) (DC), Acute Abdominal Pain (DC) Additional Instructions: Please take antibiotics as prescribed. Please follow up with Dr. Sorto in 1 week. Please also see your PMD within 1 week. Referrals: James Ayala MD [Staff Provider] - Clifton Sorto MD, PhD [Staff Provider] -
[2017-06-18 16:08] VITALS: BP 108/75; PULSE 70; TEMP 97.3; O2SAT 96
== END 2017-06-18 19:03 | disposition home or self-care (01) | DRG 445 ==
LOC: H.ER 14:24 → H.ERHOLD 19:48 → H.MEDSURG1 21:41
PROVIDERS: ADMIT Internal Medicine; ATTEND Internal Medicine
PROC: 3E0234Z Introduction of Serum, Toxoid and Vaccine into Muscle, Percutaneous Approach (ICD-10-PCS; 2017-06-15)
PROC: 0FC98ZZ Extirpation of Matter from Common Bile Duct, Via Natural or Artificial Opening Endoscopic (ICD-10-PCS; 2017-06-18)
PROC: 0F798ZZ Dilation of Common Bile Duct, Via Natural or Artificial Opening Endoscopic (ICD-10-PCS; principal; 2017-06-18 11:30)
DX: K80.50 Calculus of bile duct without cholangitis or cholecystitis without obstruction (principal); N39.0 Urinary tract infection, site not specified; Z68.41 Body mass index [BMI] 40.0-44.9, adult; E66.01 Morbid (severe) obesity due to excess calories; B96.20 Unspecified Escherichia coli [E. coli] as the cause of diseases classified elsewhere; J45.909 Unspecified asthma, uncomplicated; Z90.49 Acquired absence of other specified parts of digestive tract; Z23 Encounter for immunization